=== PATIENT | female | born 1965 | race Hispanic/Latino ===

== ENCOUNTER 2019-06-16 09:38 | Inpatient (IN) | payer MEDICAID ==
[2019-06-16] MEDS ORDERED: SODIUM CHLORIDE 0.9% 500 ML 500 ML IV ONE (09:42)
--- NOTE | 2019-06-16 09:43 | Emergency Department Report ---
ED Neuro Deficit HPI - General Chief Complaint: Neuro Symptoms/Deficit Stated Complaint: POSS CVA Time Seen by Provider: 06/16/19 09:40 Source: patient, EMS ( EMS documentation not available at time of chart dictation . Verbal report received from emergency medical services), RN notes reviewed Mode of arrival: Stretcher Limitations: Physical Limitation - History of Present Illness Initial Comments: Patient is a 53-year-old female, not known to this provider previously, brought to the hospital by emergency medical services as a possible code stroke. Last known well time is estimated to be 3 am today. Patient reportedly had a mechanical fall, and landed on her knees. She did not hit her head or neck. Her neurologic deficits include slurred speech, facial droop, loss of vision in the right eye, right arm weakness, right leg weakness. Accu-Chek acceptable in the field as per emergency medical services. Patient initially denied midline neck pain, chest pain, abdominal pain, shortness of breath, and lower extremity pain. Her symptoms are constant, they're painless, they do not radiate anywhere, they do not have exacerbating or relieving factors -: This morning, unknown Location: speech, right face, dysarthria, right arm, right leg Presenting Symptoms: Present: Weak/Paralyzed One Side, Blurred/Loss of Vision, Facial Droop/Numbness, Unable to Speak Clearly History of same: No Place: home Severity: severe Improves With: none Worsens With: none On Anticoagulants: No Context: other - Related Data Allergies/Adverse Reactions: Allergies Allergy/AdvReac Type Severity Reaction Status Date / Time No Known Allergies Allergy Verified 06/16/19 10:42 ED Review of Systems ROS: Stated complaint: POSS CVA Other details as noted in HPI Constitutional: denies: fever Eyes: vision change ENT: denies: dental pain Respiratory: denies: wheezing Cardiovascular: denies: syncope Gastrointestinal: denies: abdominal pain Musculoskeletal: myalgia (while in her emergency department stay, the patient developed cramping in her right posterior calf.) Neurological: weakness Psychiatric: anxiety Hematological/Lymphatic: denies: easy bleeding ED Neuro Physical Exam - General Limitations: Physical Limitation General appearance: alert, anxious Suspected Stroke: Yes - Head Head exam: Present: atraumatic, normocephalic - Eye Eye exam: Present: normal appearance, other (left-sided visual milligan are intact to finger counting and color perception. Right-sided visual milligan are not present at this time.). Absent: nystagmus - ENT ENT exam: Present: normal orophraynx, mucous membranes moist, normal external ear exam, other (there is a right-sided facial droop) - Neck Neck exam: Present: normal inspection, full ROM. Absent: tenderness, meningismus - Respiratory Respiratory exam: Present: normal lung sounds bilaterally. Absent: respiratory distress - Cardiovascular Cardiovascular Exam: Present: regular rate, normal rhythm, normal heart sounds. Absent: bradycardia, tachycardia, irregular rhythm, systolic murmur, diastolic murmur, rubs, gallop - GI/Abdominal GI/Abdominal exam: Present: soft. Absent: distended, tenderness, guarding, rebound, rigid, pulsatile mass - Extremities Exam Extremities exam: Present: normal inspection, other (2+ pulses noted in the bilateral upper and lower extremities. There is no palpable cord. negative Homans sign. Muscular compartments are soft. The pelvis is stable.). Absent: tenderness, calf tenderness - Back Exam Back exam: Present: normal inspection. Absent: tenderness, CVA tenderness (R), CVA tenderness (L), paraspinal tenderness, vertebral tenderness - Neurological Exam Neurological exam: Present: alert, oriented X3, motor sensory deficit (there is 5 out of 5 strength left arm and left leg. Sensation is intact to light touch left arm and left leg. 0 out of 5 strength right arm and right leg. Decreased sensation to light touch right arm and right leg.). Absent: CN II-XII intact (patient is dysarthric. There is a right-sided hemianopia. There is a right- sided facial droop. The tongue is midline.) - NIHSS Assessment Interval: Baseline 1a. Level of Consciousness: alert/keenly responsive 1b. LOC Questions: answers both correctly 1c. LOC Commands: performs tasks correctly 2. Best Gaze: normal 3. Visual: complete hemianopia 4. Facial Palsy: partial paralysis 5b. Motor Arm Right: no movement 5a. Motor Arm Left: no drift 6a. Motor Leg Left: no drift 6b. Motor Leg Right: no movement 7. Limb Ataxia: absent 8. Sensory: severe/total sensory loss 9. Best Language: no aphasia 10. Dysarthria: severe dysarthria 11. Extinction/Inattention: visual/tactile inattention Total Score: 17 Stroke Severity: Moderate to Severe Stroke - Psychiatric Psychiatric exam: Present: anxious - Skin Skin exam: Present: warm, dry, intact, normal color. Absent: rash ED Course Vital Signs 06/16/19 06/16/19 06/16/19 09:54 10:00 10:30 Temperature Pulse Rate 96 H Respiratory 16 Rate Blood Pressure 201/107 203/108 O2 Sat by Pulse 98 97 97 Oximetry 06/16/19 06/16/19 06/16/19 10:45 10:53 11:06 Temperature 97.8 F Pulse Rate 88 Respiratory 15 13 Rate Blood Pressure 163/90 O2 Sat by Pulse 97 96 Oximetry - Reevaluation(s) Reevaluation #1: 06/16/19 11:29 Differential diagnosis, including but not limited to: Subacute stroke, charley horse, muscle cramps, hypertensive urgency, hyperglycemia Assessment and plan: 53-year-old female with history and physical suggestive of subacute stroke. The patient is not a TPA candidate as she presents more than 4.5 hours after symptom onset. She initially has no chest pain, neck pain, back pain, abdominal pain or extremity pain. She has equal pulses in the upper and lower extremities. An emergent CT angiogram was obtained, and shows a left-sided NAPOLEON stenosis and/ or possible thrombosis. We have reached out to interventional stroke neurology at [place], and discussed the case with Dr. Hubbard who is currently reviewing the patient's images. At this point in time, do not anticipate need for endovascular intervention. At one point in time, the patient developed a blood pressure in the 230s, secondary to pain, cramping in agitation, and was given labetalol. Blood pressure now currently in the 160s. Hyperglycemia reviewed and appreciated, IV fluids and insulin ordered. Hypomagnesemia is appreciated. Elevated troponin most likely type II troponin leak, likely secondary to presumed subacute ischemic event. We do not suspect aortic dissection at this time, given CT angiogram findings, presence of equal pulses in the upper and lower extremities at this time, lack of pulsatile abdominal mass. Case is presented to the Hospital physician, Dr. Velazquez, who accepts the patient to the medical service. Patient amenable to hospitalization at this time. Patient also seen in conjunction with our stroke neurologist, Dr. Ermias Pink, who also recommended TPA not appropriate, and also recommended emergent acquisition of CT angiogram head and neck. Reevaluation #2: 06/16/19 11:57 received call back from Dr Hubbard he advises no no endovascular intervention indicated recommends permissive hypertension, dual anti platelet therapy including plavix load 300 mg and mri will defer to inpatient team - Lab Data Result diagrams: 06/16/19 09:56 06/16/19 09:56 Lab Results 06/16/19 06/16/19 06/16/19 Range/Units 09:56 09:56 09:56 WBC 13.5 H (4.5-11.0) K/mm3 RBC 5.91 H (3.65-5.03) M/mm3 Hgb 17.5 H (10.1-14.3) gm/dl Hct 51.2 H (30.3-42.9) % MCV 87 (79-97) fl MCH 30 (28-32) pg MCHC 34 (30-34) % RDW 13.8 (13.2-15.2) % Plt Count 300 (140-440) K/mm3 Lymph % (Auto) 17.6 (13.4-35.0) % [place] % (Auto) 5.6 (0.0-7.3) % Eos % (Auto) 0.0 (0.0-4.3) % Baso % (Auto) 0.5 (0.0-1.8) % Lymph # 2.4 (1.2-5.4) K/mm3 [place] # 0.8 (0.0-0.8) K/mm3 Eos # 0.0 (0.0-0.4) K/mm3 Baso # 0.1 (0.0-0.1) K/mm3 Seg Neutrophils % 76.3 H (40.0-70.0) % Seg Neutrophils # 10.3 H (1.8-7.7) K/mm3 PT 12.9 (12.2-14.9) Sec. INR 0.96 (0.87-1.13) APTT 26.0 (24.2-36.6) Sec. Thrombin Time 18.4 (15.1-19.6) Sec. Sodium (137-145) mmol/L Potassium (3.6-5.0) mmol/L Chloride (98-107) mmol/L Carbon Dioxide (22-30) mmol/L Anion Gap mmol/L BUN (7-17) mg/dL Creatinine (0.7-1.2) mg/dL Estimated GFR ml/min BUN/Creatinine Ratio % Glucose (65-100) mg/dL Calcium (8.4-10.2) mg/dL Magnesium 1.60 L (1.7-2.3) mg/dL Total Bilirubin (0.1-1.2) mg/dL AST (5-40) units/L ALT (7-56) units/L Alkaline Phosphatase (35-129) units/L Total Creatine Kinase 33 (30-135) units/L CK-MB (CK-2) 1.8 (0.0-4.0) ng/mL CK-MB (CK-2) Rel Index 5.4 H (0-4) Troponin T 0.034 H (0.00-0.029) ng/mL Total Protein (6.3-8.2) g/dL Albumin (3.9-5) g/dL Albumin/Globulin Ratio % Triglycerides 302 H (2-149) mg/dL Cholesterol 281 H (50-199) mg/dL LDL Cholesterol Direct 207 H (50-130) mg/dL HDL Cholesterol 52 (40-59) mg/dL Cholesterol/HDL Ratio 5.40 % Salicylates (2.8-20.0) mg/dL Acetaminophen (10.0-30.0) ug/mL Plasma/Serum Alcohol (0-0.07) % 06/16/19 06/16/19 06/16/19 Range/Units 09:56 09:56 09:56 WBC (4.5-11.0) K/mm3 RBC (3.65-5.03) M/mm3 Hgb (10.1-14.3) gm/dl Hct (30.3-42.9) % MCV (79-97) fl MCH (28-32) pg MCHC (30-34) % RDW (13.2-15.2) % Plt Count (140-440) K/mm3 Lymph % (Auto) (13.4-35.0) % [place] % (Auto) (0.0-7.3) % Eos % (Auto) (0.0-4.3) % Baso % (Auto) (0.0-1.8) % Lymph # (1.2-5.4) K/mm3 [place] # (0.0-0.8) K/mm3 Eos # (0.0-0.4) K/mm3 Baso # (0.0-0.1) K/mm3 Seg Neutrophils % (40.0-70.0) % Seg Neutrophils # (1.8-7.7) K/mm3 PT (12.2-14.9) Sec. INR (0.87-1.13) APTT (24.2-36.6) Sec. Thrombin Time (15.1-19.6) Sec. Sodium (137-145) mmol/L Potassium (3.6-5.0) mmol/L Chloride (98-107) mmol/L Carbon Dioxide (22-30) mmol/L Anion Gap mmol/L BUN (7-17) mg/dL Creatinine (0.7-1.2) mg/dL Estimated GFR ml/min BUN/Creatinine Ratio % Glucose (65-100) mg/dL Calcium (8.4-10.2) mg/dL Magnesium (1.7-2.3) mg/dL Total Bilirubin (0.1-1.2) mg/dL AST (5-40) units/L ALT (7-56) units/L Alkaline Phosphatase (35-129) units/L Total Creatine Kinase (30-135) units/L CK-MB (CK-2) (0.0-4.0) ng/mL CK-MB (CK-2) Rel Index (0-4) Troponin T (0.00-0.029) ng/mL Total Protein (6.3-8.2) g/dL Albumin (3.9-5) g/dL Albumin/Globulin Ratio % Triglycerides (2-149) mg/dL Cholesterol (50-199) mg/dL LDL Cholesterol Direct (50-130) mg/dL HDL Cholesterol (40-59) mg/dL Cholesterol/HDL Ratio % Salicylates 2.0 L (2.8-20.0) mg/dL Acetaminophen < 5.0 L (10.0-30.0) ug/mL Plasma/Serum Alcohol < 0.01 (0-0.07) % 1213/ Range/Units 09:56 WBC (4.5-11.0) K/mm3 RBC (3.65-5.03) M/mm3 Hgb (10.1-14.3) gm/dl Hct (30.3-42.9) % MCV (79-97) fl MCH (28-32) pg MCHC (30-34) % RDW (13.2-15.2) % Plt Count (140-440) K/mm3 Lymph % (Auto) (13.4-35.0) % [place] % (Auto) (0.0-7.3) % Eos % (Auto) (0.0-4.3) % Baso % (Auto) (0.0-1.8) % Lymph # (1.2-5.4) K/mm3 [place] # (0.0-0.8) K/mm3 Eos # (0.0-0.4) K/mm3 Baso # (0.0-0.1) K/mm3 Seg Neutrophils % (40.0-70.0) % Seg Neutrophils # (1.8-7.7) K/mm3 PT (12.2-14.9) Sec. INR (0.87-1.13) APTT (24.2-36.6) Sec. Thrombin Time (15.1-19.6) Sec. Sodium 135 L (137-145) mmol/L Potassium 4.2 (3.6-5.0) mmol/L Chloride 95.3 L (98-107) mmol/L Carbon Dioxide 20 L (22-30) mmol/L Anion Gap 24 mmol/L BUN 12 (7-17) mg/dL Creatinine 0.5 L (0.7-1.2) mg/dL Estimated GFR > 60 ml/min BUN/Creatinine Ratio 24 % Glucose 342 H (65-100) mg/dL Calcium 10.1 (8.4-10.2) mg/dL Magnesium (1.7-2.3) mg/dL Total Bilirubin 0.50 (0.1-1.2) mg/dL AST 13 (5-40) units/L ALT 10 (7-56) units/L Alkaline Phosphatase 87 (35-129) units/L Total Creatine Kinase (30-135) units/L CK-MB (CK-2) (0.0-4.0) ng/mL CK-MB (CK-2) Rel Index (0-4) Troponin T (0.00-0.029) ng/mL Total Protein 7.3 (6.3-8.2) g/dL Albumin 4.2 (3.9-5) g/dL Albumin/Globulin Ratio 1.4 % Triglycerides (2-149) mg/dL Cholesterol (50-199) mg/dL LDL Cholesterol Direct (50-130) mg/dL HDL Cholesterol (40-59) mg/dL Cholesterol/HDL Ratio % Salicylates (2.8-20.0) mg/dL Acetaminophen (10.0-30.0) ug/mL Plasma/Serum Alcohol (0-0.07) % - EKG Data -: EKG Interpreted by [facility] EKG shows normal: sinus rhythm Rate: normal When compared to previous EKG there are: previous EKG unavailable 06/16/19 11:32 There is no prior EKG available for comparison. The EKG shows a sinus rhythm, there is a prolonged FL interval, there is poor R wave progression, there is a left axis deviation, there is a left anterior fascicular block, there is poor R wave progression, the EKG is abnormal, the EKG is not consistent with ST elevation myocardial infarction. - Radiology Data Radiology results: report reviewed, image reviewed Print Report Referring Physician: CATINA TONG Patient Name: DENZEL WADE Date of : 1965 Sex: Female Report Date: 2019-06-16 Report Status: [place] [address] Cat Scan Report Signed Patient: DENZEL WADE MR#: [id number] : 1965 Acct:[id number] Age/Sex: 53 / F ADM Date: 06/16/19 Loc: ED Attending Dr: Ordering Physician: CATINA TONG MD Date of Service: 06/16/19 Procedure(s): CT head/brain wo con Accession Number(s): [id number] cc: CATINA TONG MD CT HEAD WITHOUT CONTRAST INDICATION / CLINICAL INFORMATION: Stroke symptoms. Right- sided weakness TECHNIQUE: All CT scans at this location are performed using CT dose reduction for ALARA by means of automated exposure control. COMPARISON: None available. FINDINGS: HEMORRHAGE: No evidence of intracranial hemorrhage or extra-axial fluid collection. EXTRA-AXIAL SPACES: Cortical sulci, sylvian fiss ures and basilar cisterns have an unremarkable appearance. VENTRICULAR SYSTEM: The ventricular system is of normal size and configuration. CEREBRAL PARENCHYMA: There is a low-attenuation lesion involving portions of the left thalamus, posterior limb internal capsule and globus pallidus measuring about 1.5 cm in diameter. This could represent a subacute infarction. Subtle low-attenuation is observed in the left temporal lobe. This is an indeterminate finding. Is evidence of remote small deep infarction involving head of caudate nucleus on the left and adjacent monsivais radiata. A small deep infarction is seen in the right monsivais radiata. Periventricular and deep white matter lucency is observed in both cerebral hemispheres likely a manifestation of microvascular ischemic change. Magnetic resonance imaging would be useful to more accurately date the age of the suspected left thalamic infarction and better characterize the decreased attenuation in the left temporal lobe. MIDLINE SHIFT OR HERNIATION: There is no mass effect. CEREBELLUM / BRAINSTEM: Brainstem and cerebellum have an unremarkable appearance. INTRACRANIAL VESSELS:No abnormalities are identified on this noncontrast head CT. ORBITS: The orbits have an unremarkable appearance. SOFT TISSUES of HEAD: No significant abnormality. CALVARIUM: Evaluation of bone windows reveals no abnormalities. PARANASAL SINUSES / MASTOID AIR CELLS: Paranasal sinuses are free from inflammatory mucosal disease. Mastoid air cells are normally pneumatized. ADDITIONAL FINDINGS: None. IMPRESSION: 1. 1.5 cm diameter low-attenuation lesion involving left thalamus, posterior limb internal capsule and globus pallidus may represent a subacute infarction. Is also decreased attenuation in the left temporal lobe which could be secondary to subacute infarction. Correlation with magnetic resonance imaging would be useful to better define and characterize this finding. 2. Remote small deep infarctions bilaterally as described above. 3. Extensive microvascular ischemic changes greater than expected for age 53 years. Code stroke: I called a report of this study to Dr. Tong of the [facility] emergency department at about 0912 hours on 06/16/2019 (Central standard time). Signer Name: Hitesh Hyman MD Signed: 06/16/2019 10:21 AM Workstation Name: [id number] Transcribed By: Dictated By: Hitesh Hyman MD Electronically Authenticated By: Hitesh Hyman MD Signed Date/Time: 06/16/19 1021 DD/ 1009 Print Report Referring Physician: CATINA TONG Patient Name: DENZEL WADE Date of : 1965 Sex: Female Report Date: 2019-06-16 Report Status: Finalized Findings [facility] [address] [place] [address] Cat Scan Report Signed Patient: DENZEL WADE MR#: [id number] : 1965 Acct:[id number] Age/Sex: 53 / F ADM Date: 06/16/19 Loc: ED Attending Dr: Ordering Physician: CATINA TONG MD Date of Service: 06/16/19 Procedure(s): CT cervical spine wo con Accession Number(s): [id number] cc: CATINA TONG MD CT CERVICAL SPINE: 06/16/2019 INDICATION / CLINICAL INFORMATION: fall weak. COMPARISON: None available. FINDINGS: CT images of the cervical spine were obtained. Images are evaluated in the axial, coronal, and sagittal planes. There is no evidence of acute abnormality. Slight left convex scoliosis of the spine at the cervicothoracic junction is present. Degenerative disc space narrowing and osteophyte medicine is present at all levels. LEVEL BY LEVEL ANALYSIS: C7- T1: Disc space narrowing and mild disc bulging. C6-7: Disc space narrowing and moderate diffuse disc bulging, more pronounced on the right. Right-sided foraminal narrowing is present. C5-6: Prominent diffuse disc bulging, slightly more pronounced on the right. Moderately severe central canal narrowing and right-sided foraminal narrowing. C3-4: Prominent symmetric diffuse disc bulging associated with severe central canal stenosis and bilateral foraminal narrowing. C3-4: Diffuse disc bulging with superimposed central disc herniation, resulting in severe central canal stenosis. Protruding central disc herniation is slightly hyperdense relative to expected disc material. This may be evidence of some underlying calcification, although a small amount of blood products cannot be excluded. Depending on details of the clinical circumstances, further evaluation with MRI might be warranted. C2-3: Mild diffuse disc bulging. CRANIOCERVICAL JUNCTION: Unremarkable. PARASPINAL STRUCTURES: Unremarkable IMPRESSION: No evidence of acute osseous injury. Extensive degenerative changes. Dominant francisco javier tral disc herniation at C3-4 with subtle hyperdensity in the presumed herniated disc material as detailed above. All CT scans at this location are performed using dose reduction to ALARA by means of automated exposure control. Signer Name: Jc Mancia MD Signed: 06/16/2019 11:15 AM Workstation Name: [id number] Transcribed By: AO Dictated By: Jc Mancia MD Electronically Authenticated By: Jc Mancia MD Signed Date/Time: 06/16/19 1115 DD/ 1110 Print Report Referring Physician: CATINA TONG Patient Name: DENZEL WADE Date of : 1965 Sex: Female Report Date: 2019-06-16 Report Status: [place] [address] Cat Scan Report Signed Patient: DENZEL WADE MR#: [id number] : 1965 Acct:[id number] Age/Sex: 53 / F ADM Date: 06/16/19 Loc: ED Attending Dr: Ordering Physician: CATINA TONG MD Date of Service: 06/16/19 Procedure(s): CT angio head Accession Number(s): [id number] cc: CATINA TONG MD CTA HEAD AND NECK WITH CONTRAST HISTORY: Stroke, right-sided weakness COMPARISON: CT head without contrast performed the same day TECHNIQUE: Routine non-contrast CT Head, post-contrast CTA of the head, post-contrast CTA of the neck and post-contrast CT Head are performed. 3-D/MIP reformats postprocessed. Percentage stenosis is determined by direct quantitative measurements of diseased internal carotid artery diameter compared with normal distal internal carotid artery reference segments or by criteria similar to NASCET where applicable. CONTRAST: 100 ml of Omnipaque 350 FINDINGS: CTA HEAD: Intracranial vertebral arteries: The right vertebral artery is widely patent. Focal narrowing in the distal left vertebral artery is estimated at at least 50%. Basilar artery: No significant abnormality. Posterior cerebral arteries: There is mild to moderate atherosclerotic disease in the proximal left FOOD COUNTER WORKER with stenosis estimated at 50%. The remainder of the weight analyst appear patent. Intracranial internal carotid arteries: No significant abnormality. Anterior cerebral arteries: Focal high-grade stenosis or partial oc clusion is suspected in the mid left anterior cerebral artery which is best demonstrated on axial images 453-458 and sagittal MIPS image 30. There is flow distal to this stenosis in the distal left NAPOLEON. The right N[place]OLE[place] is widely patent. Middle cerebral arteries: The left MCA is widely patent. The right MCA is patent although 50% narrowing in the right M1 segment is noted from noncalcified plaque. Dural venous sinuses:Not optimally opacified. No significant abnormality. CTA NECK: Aortic arch: No significant abnormality. Cervical vertebral arteries: No significant abnormality. Common carotid arteries: No significant abnormality. Cervical internal carotid arteries: No significant abnormality. Additional findings: None. IMPRESSION: Focal high-grade stenosis or partial thrombosis is suspected in the mid left anterior cerebral artery as outlined above. Mild to moderate atherosclerotic disease in the distal left vertebral artery, proximal left posterior cerebral artery and proximal right middle cerebral artery. See above. These findings were discussed with Dr. Doll in the emergency department at 1105 hours EST. Signer Name: Thuan John Jr, MD Signed: 06/16/2019 11:15 AM Workstation Name: [id number] Transcribed By: TTR Dictated By: THUAN JOHN JR, MD Electronically Authenticated By: THUAN JOHN JR, MD Signed Date/Time: 06/16/19 1115 DD/ 1053 Print Report Referring Physician: CATINA TONG Patient Name: DENZEL WADE Date of : 1965 Sex: Female Report Date: 2019-06-16 Report Status: Finalized Findings [address] [address] Cat Scan Report Signed Patient: DENZEL WADE MR#: [id number] : 1965 Acct:[id number] Age/Sex: 53 / F ADM Date: 06/16/19 Loc: ED Attending Dr: Ordering Physician: CATINA TONG MD Date of Service: 06/16/19 Procedure(s): CT angio neck Accession Number(s): [id number] cc: CATINA TONG MD CTA HEAD AND NECK WITH CONTRAST HISTORY: Stroke, right-sided weakness COMPARISON: CT head without contrast performed the same day TECHNIQUE: Routine non-contrast CT Head, post-contrast CTA of the head, post-contrast CTA of the neck and post-contrast CT Head are performed. 3-D/MIP reformats postprocessed. Percentage stenosis is determined by direct quantitative measurements of diseased internal carotid artery diameter compared with normal distal internal carotid artery reference segments or by criteria similar to NASCET where applicable. CONTRAST: 100 ml of Omnipaque 350 FINDINGS: CTA HEAD: Intracranial vertebral arteries: The right vertebral artery is widely patent. Focal narrowing in the distal left vertebral artery is estimated at at least 50%. Basilar artery: No significant abnormality. Posterior cerebral arteries: There is mild to moderate atherosclerotic disease in the proximal left FO[employer]ER with stenosis estimated at 50%. The remainder of the weight analyst appear patent. Intracranial internal carotid arteries: No significant abnormality. Anterior cerebral arteries: Focal high-grade stenosis or partial occlusion is suspected in the mid left anterior cerebral artery which is best demonstrated on axial images 453-458 and sagittal MIPS image 30. There is flow distal to this stenosis in the distal left NAPOLEON. The right N[place]OLEON is widely patent. Middle cerebral arteries: The left MCA is widely patent. The right MCA is patent although 50% narrowing in the right M1 segment is noted from noncalcified plaque. Dural venous sinuses:Not optimally opacified. No significant abnormality. CTA NECK: Aortic arch: No significant abnormality. Cervical vertebral arteries: No significant abnormality. Common carotid arteries: No significant abnormality. Cervical internal carotid arteries: No significant abnormality. Additional findings: None. IMPRESSION: Focal high-grade stenosis or partial thrombosis is suspected in the mid left anterior cerebral artery as outlined above. Mild to moderate atherosclerotic disease in the distal left vertebral artery, proximal left posterior cerebral artery and proximal right middle cerebral artery. See above. These findings were discussed with Dr. Doll in the emergency department at 1105 hours EST. Signer Name: Thuan John Jr, MD Signed: 06/16/2019 11:15 AM Workstation Name: [id number] Transcribed By: TTR Dictated By: THUAN JOHN JR, MD Electronically Authenticated By: THUAN JOHN JR, MD Signed Date/Time: 06/16/19 1115 DD/ 1053 - Core Measures Measure Exclusions: not indicated - Thrombolytic Inclusion/Exclusion Thrombolytic Exclusion Criteria: Symptom Onset > 3 Hours Critical Care Time: Yes Critical care time in (mins) excluding proc time.: 60 Critical care attestation.: If time is entered above; I have spent that time in minutes in the direct care of this critically ill patient, excluding procedure time. ED Disposition Clinical Impression: Stroke, Hyperglycemia, Hypomagnesemia Disposition: OP ADMIT IP TO THIS HOSP Is pt being admited?: Yes Condition: Serious
[2019-06-16 10:11] LABS: Basophils # (Auto) 0.1 K/mm3 (0.0-0.1); Basophils % (Auto) 0.5 % (0.0-1.8); Hematocrit 51.2 % (30.3-42.9); Hemoglobin 17.5 gm/dl (10.1-14.3); Lymphocytes # (Auto) 2.4 K/mm3 (1.2-5.4); Lymphocytes % (Auto) 17.6 % (13.4-35.0); Mean Corpuscular HGB Conc 34 % (30-34); Mean Corpuscular Volume 87 fl (79-97); Monocytes # (Auto) 0.8 K/mm3 (0.0-0.8); Monocytes % (Auto) 5.6 % (0.0-7.3); Platelet Count 300 K/mm3 (140-440); Red Blood Count 5.91 M/mm3 (3.65-5.03); Red Cell Distribution Width 13.8 % (13.2-15.2)
[2019-06-16 10:18] LABS: INR 0.96 (0.87-1.13)
[2019-06-16 10:21] LABS: Thrombin Time 18.4 Sec. (15.1-19.6)
--- NOTE | 2019-06-16 10:25 | Cat Scan Report ---
CT HEAD WITHOUT CONTRAST INDICATION / CLINICAL INFORMATION: Stroke symptoms. Right-sided weakness TECHNIQUE: All CT scans at this location are performed using CT dose reduction for ALARA by means of automated e xposure control. COMPARISON: None available. FINDINGS: HEMORRHAGE: No evidence of intracranial hemorrhage or extra-axial fluid collection. EXTRA-AXIAL SPACES: Cortical sulci, sylvian fissures and basilar cisterns have an unremarkable appear ance. VENTRICULAR SYSTEM: The ventricular system is of normal size and configuration. CEREBRAL PARENCHYMA: There is a low-attenuation lesion involving portions of the left thalamus, poste rior limb internal capsule and globus pallidus measuring about 1.5 cm in diameter. This could represe nt a subacute infarction. Subtle low-attenuation is observed in the left temporal lobe. This is an in determinate finding. Is evidence of remote small deep infarction involving head of caudate nucleus on the left and adjacent monsivais radiata. A small deep infarction is seen in the right monsivais radiata. P eriventricular and deep white matter lucency is observed in both cerebral hemispheres likely a manife station of microvascular ischemic change. Magnetic resonance imaging would be useful to more accurate ly date the age of the suspected left thalamic infarction and better characterize the decreased atten uation in the left temporal lobe. MIDLINE SHIFT OR HERNIATION: There is no mass effect. CEREBELLUM / BRAINSTEM: Brainstem and cerebellum have an unremarkable appearance. INTRACRANIAL VESSELS:No abnormalities are identified on this noncontrast head CT. ORBITS: The orbits have an unremarkable appearance. SOFT TISSUES of HEAD: No significant abnormality. CALVARIUM: Evaluation of bone windows reveals no abnormalities. PARANASAL SINUSES / MASTOID AIR CELLS: Paranasal sinuses are free from inflammatory mucosal disease. Mastoid air cells are normally pneumatized. ADDITIONAL FINDINGS: None. IMPRESSION: 1. 1.5 cm diameter low-attenuation lesion involving left thalamus, posterior limb internal capsule an d globus pallidus may represent a subacute infarction. Is also decreased attenuation in the left temp oral lobe which could be secondary to subacute infarction. Correlation with magnetic resonance imagin g would be useful to better define and characterize this finding. 2. Remote small deep infarctions bilaterally as described above. 3. Extensive microvascular ischemic changes greater than expected for age 55 years. Code stroke: I called a report of this study to Dr. Tong of the [facility] emergency department at about 0912 hours on 06/16/2019 (Central standard time). Signer Name: Hitesh Hyman MD Signed: 06/16/2019 10:21 AM Workstation Name: [id number]
[2019-06-16 10:26] LABS: Creatine Kinase MB 1.8 ng/mL (0.0-4.0)
[2019-06-16 10:27] LABS: Alanine Aminotransferase 10 units/L (7-56); Blood Urea Nitrogen 12 mg/dL (7-17); Calcium 10.1 mg/dL (8.4-10.2); Hemolysis Index 17
[2019-06-16] MEDS ORDERED: INSULIN REGULAR, HUMAN 100 UNITS/1 ML IV ONE (10:35)
[2019-06-16] MEDS ORDERED: MAGNESIUM SULFATE 2 GM/50 ML BAG IV ONE (10:35)
[2019-06-16] MEDS ORDERED: MORPHINE 4 MG/1 ML INJ IV ONE (10:35)
[2019-06-16] MEDS ORDERED: MORPHINE 4 MG/1 ML INJ ONE (10:38)
[2019-06-16 10:39] LABS: Chol/HDL Ratio 5.4 %
[2019-06-16 10:52] LABS: Albumin 4.2 g/dL (3.9-5); BUN/Creatinine Ratio 24
--- NOTE | 2019-06-16 11:19 | Cat Scan Report ---
CTA HEAD AND NECK WITH CONTRAST HISTORY: Stroke, right-sided weakness COMPARISON: CT head without contrast performed the same day TECHNIQUE: Routine non-contrast CT Head, post-contrast CTA of the head, post-contrast CTA of the neck and post-contrast CT Head are performed. 3-D/MIP reformats postprocessed. Percentage stenosis is de termined by direct quantitative measurements of diseased internal carotid artery diameter compared wi th normal distal internal carotid artery reference segments or by criteria similar to NASCET where ap plicable. CONTRAST: 100 ml of Omnipaque 350 FINDINGS: CTA HEAD: Intracranial vertebral arteries: The right vertebral artery is widely patent. Focal narrowing in the distal left vertebral artery is estimated at at least 50%. Basilar artery: No significant abnormality. Posterior cerebral arteries: There is mild to moderate atherosclerotic disease in the proximal left P CA with stenosis estimated at 50%. The remainder of the second hand paper machine appear patent. Intracranial internal carotid arteries: No significant abnormality. Anterior cerebral arteries: Focal high-grade stenosis or partial occlusion is suspected in the mid le ft anterior cerebral artery which is best demonstrated on axial images [id number] and sagittal MIPS imag e 30. There is flow distal to this stenosis in the distal left NAPOLEON. The right NAPOLEON is widely patent. Middle cerebral arteries: The left MCA is widely patent. The right MCA is patent although 50% narrow ing in the right M1 segment is noted from noncalcified plaque. Dural venous sinuses:Not optimally opacified. No significant abnormality. CTA NECK: Aortic arch: No significant abnormality. Cervical vertebral arteries: No significant abnormality. Common carotid arteries: No significant abnormality. Cervical internal carotid arteries: No significant abnormality. Additional findings: None. IMPRESSION: Focal high-grade stenosis or partial thrombosis is suspected in the mid left anterior cerebral artery as outlined above. Mild to moderate atherosclerotic disease in the distal left vertebral artery, proximal left posterior cerebral artery and proximal right middle cerebral artery. See above. These findings were discussed with Dr. Doll in the emergency department at 1105 hours EST. Signer Name: Thuan John Jr, MD Signed: 06/16/2019 11:15 AM Workstation Name: [id number]
--- NOTE | 2019-06-16 11:20 | Cat Scan Report ---
CT CERVICAL SPINE: 06/16/2019 INDICATION / CLINICAL INFORMATION: fall weak. COMPARISON: None available. FINDINGS: CT images of the cervical spine were obtained. Images are evaluated in the axial, coronal, and sagitt al planes. There is no evidence of acute abnormality. Slight left convex scoliosis of the spine at the cervicothoracic junction is present. Degenerative disc space narrowing and osteophyte medicine is present at all levels. LEVEL BY LEVEL ANALYSIS: C7-T1: Disc space narrowing and mild disc bulging. C6-7: Disc space narrowing and moderate diffuse disc bulging, more pronounced on the right. Right-janeen ed foraminal narrowing is present. C5-6: Prominent diffuse disc bulging, slightly more pronounced on the right. Moderately severe centra l canal narrowing and right-sided foraminal narrowing. C3-4: Prominent symmetric diffuse disc bulging associated with severe central canal stenosis and bila teral foraminal narrowing. C3-4: Diffuse disc bulging with superimposed central disc herniation, resulting in severe central can al stenosis. Protruding central disc herniation is slightly hyperdense relative to expected disc mate rial. This may be evidence of some underlying calcification, although a small amount of blood product s cannot be excluded. Depending on details of the clinical circumstances, further evaluation with MRI might be warranted. C2-3: Mild diffuse disc bulging. CRANIOCERVICAL JUNCTION: Unremarkable. PARASPINAL STRUCTURES: Unremarkable IMPRESSION: No evidence of acute osseous injury. Extensive degenerative changes. Dominant central disc herniation at C3-4 with subtle hyperdensity in the presumed herniated disc mate rial as detailed above. All CT scans at this location are performed using dose reduction to ALARA by means of automated expos ure control. Signer Name: Jc Mancia MD Signed: 06/16/2019 11:15 AM Workstation Name: [id number]
[2019-06-16] MEDS ORDERED: ASPIRIN 325 MG TAB PO ONE (11:21)
[2019-06-16] MEDS ORDERED: METOCLOPRAMIDE 10 MG TAB PO PRN (11:49)
[2019-06-16] MEDS ORDERED: ALBUTEROL 2.5 MG/3 ML NEBU IH PRN (11:49)
[2019-06-16] MEDS ORDERED: ONDANSETRON 4 MG/2 ML INJ IV PRN (11:49)
[2019-06-16] MEDS ORDERED: MAGNESIUM HYDROXIDE (MOM) ORAL LIQD UDC PO PRN (11:49)
[2019-06-16] MEDS ORDERED: PROMETHAZINE 25 MG RECT SUPP PR PRN (11:49)
--- NOTE | 2019-06-16 11:49 | History and Physical Report ---
History of Present Illness Date of admission: 06/16/19 11:35 Chief complaint: I cant talk History of present illness: 53 YO Female with NO PMH presents to ED for evaluation. Pt has dysarthria and has difficulty answering questions. Pt reports being in her usual state of health around 0300hrs. Pt reports awakening from sleep around 0800hrs and experienced slurred speech, right side facial droop, right arm and leg weakness, as well as loss of vision in the right eye. Pt reports attempting to stand, but was unable to maintain a standing position and fell to the floor. EMS notified, and upon arrival the patient was found to have a neurologic deficit. A code stroke was called, and the patient was transported to [facility]. Pt seen and evaluated in ED and found to have symptoms consistent with CVA with RHP and Right sided neglect. CT head revealed Left Thalamic/Internal Capsule CVA. Teleneurology consulted. Pt deemed not a candidate for TPA. Pt also found to have Hypertensive Urgency with SBP of 203. Pt admitted to medical floor and admitted on CVA protocol. Pt denies with head nod the following symptoms: fever, chills, CP, Palpitations, shortness of breath, trauma, BRBPR, Unintentional weight loss, night sweats, skin rash, recent ill contacts, abdominal pain, leg swelling, or calf pain. Past History Past Medical History: No medical history, other (reviewed) Past Surgical History: No surgical history, Other (reviewed) Social history: , lives with family. denies: smoking, alcohol abuse, prescription drug abuse Family history: hypertension Medications and Allergies Allergies Allergy/AdvReac Type Severity Reaction Status Date / Time No Known Allergies Allergy Verified 06/16/19 10:42 Review of Systems Constitutional: no weight loss, no weight gain, no fever, no chills Ears, nose, mouth and throat: no ear pain, no ear discharge, no tinnitis, no decreased hearing, no nose pain, no nasal congestion, no nasal discharge Breasts: no change in shape, no swelling, no mass Cardiovascular: no chest pain, no orthopnea, no palpitations, no syncope Respiratory: no cough, no cough with sputum, no hemoptysis, no shortness of breath, no dyspnea on exertion Gastrointestinal: no abdominal pain, no nausea, no vomiting, no diarrhea, no constipation Genitourinary Female: no pelvic pain, no flank pain, no menorrhagia, no dysuria Rectal: no pain, no incontinence, no bleeding Musculoskeletal: no neck stiffness, no neck pain, no shooting arm pain, no low back pain, no shooting leg pain, no leg numbness/tingling Integumentary: no rash, no pruritis, no sores, no wounds, no jaundice Neurological: paralysis, weakness, lack of coordination, change in speech, gait dysfunction, motor disturbance, loss of vision, no transient paralysis, no parathesias, no numbness, no tingling Psychiatric: no anxiety, no memory loss, no change in sleep habits, no sleep disturbances, no insomnia, no hypersomnia, no change in appetite Endocrine: no cold intolerance, no excessive thirst, no polydipsia, no nocturia Hematologic/Lymphatic: no easy bruising, no easy bleeding, no lymphadenopathy Allergic/Immunologic: no urticaria, no allergic rhinitis, no anaphylaxis Exam - Constitutional Vitals: Temp Pulse Resp BP Pulse Ox 97.8 F 88 13 163/90 96 06/16/19 10:53 06/16/19 10:45 06/16/19 11:06 06/16/19 10:45 06/16/19 11:06 General appearance: Present: mild distress - EENT Eyes: Present: PERRL ENT: hearing intact, clear oral mucosa - Neck Neck: Present: supple, normal ROM - Respiratory Respiratory effort: normal Respiratory: bilateral: CTA - Cardiovascular Heart Sounds: Present: S1 & S2. Absent: rub, click - Extremities Extremities: pulses symmetrical, No edema Peripheral Pulses: within normal limits - Abdominal General gastrointestinal: Present: soft, non-tender, non-distended, normal bowel sounds Female genitourinary: Present: normal - Integumentary Integumentary: Present: clear, warm, dry - Musculoskeletal Musculoskeletal: right sided weakness - Psychiatric Psychiatric: appropriate mood/affect, intact judgment & insight, agitated - Neurologic Neurologic: no CNII-XII intact, focal deficits, no moves all extremities, no gait normal Results - Labs CBC & Chem 7: 06/16/19 09:56 06/16/19 09:56 Labs: Abnormal lab results 06/16/19 06/16/19 06/16/19 Range/Units 09:56 09:56 09:56 WBC 13.5 H (4.5-11.0) K/mm3 RBC 5.91 H (3.65-5.03) M/mm3 Hgb 17.5 H (10.1-14.3) gm/dl Hct 51.2 H (30.3-42.9) % Seg Neutrophils % 76.3 H (40.0-70.0) % Seg Neutrophils # 10.3 H (1.8-7.7) K/mm3 Sodium (137-145) mmol/L Chloride (98-107) mmol/L Carbon Dioxide (22-30) mmol/L Creatinine (0.7-1.2) mg/dL Glucose (65-100) mg/dL Magnesium 1.60 L (1.7-2.3) mg/dL CK-MB (CK-2) Rel Index 5.4 H (0-4) Troponin T 0.034 H (0.00-0.029) ng/mL Triglycerides 302 H (2-149) mg/dL Cholesterol 281 H (50-199) mg/dL LDL Cholesterol Direct 207 H (50-130) mg/dL Salicylates 2.0 L (2.8-20.0) mg/dL Acetaminophen (10.0-30.0) ug/mL 06/16/19 06/16/19 Range/Units 09:56 09:56 WBC (4.5-11.0) K/mm3 RBC (3.65-5.03) M/mm3 Hgb (10.1-14.3) gm/dl Hct (30.3-42.9) % Seg Neutrophils % (40.0-70.0) % Seg Neutrophils # (1.8-7.7) K/mm3 Sodium 135 L (137-145) mmol/L Chloride 95.3 L (98-107) mmol/L Carbon Dioxide 20 L (22-30) mmol/L Creatinine 0.5 L (0.7-1.2) mg/dL Glucose 342 H (65-100) mg/dL Magnesium (1.7-2.3) mg/dL CK-MB (CK-2) Rel Index (0-4) Troponin T (0.00-0.029) ng/mL Triglycerides (2-149) mg/dL Cholesterol (50-199) mg/dL LDL Cholesterol Direct (50-130) mg/dL Salicylates (2.8-20.0) mg/dL Acetaminophen < 5.0 L (10.0-30.0) ug/mL Assessment and Plan - Patient Problems (1) CVA (cerebral vascular accident) Current Visit: Yes Status: Acute Qualifiers: Laterality of affected vessel: left Plan to address problem: CVA Protocol: CT HEAD, CTA Head neck, Teleneurology consulted, neuro check, statin therapy, lipid panel, Antiplatelet therapy, swallow evaluation, PT/OT/Speech Therapy, Echo, Carotid doppler, further testing as per Neurology team. Case management consulted regarding D/C Planning/Placement. (2) Right hemiparesis Current Visit: Yes Status: Acute Plan to address problem: PT/OT consulted, secondary to CVA (3) Hypertensive urgency, malignant Current Visit: Yes Status: Acute Plan to address problem: Monitor BP q shift, permissive HTN overnight, IV hydralazine prn for SBP>170 (4) DVT prophylaxis Current Visit: Yes Status: Acute Plan to address problem: SCD to BLE while in bed, prophylactic heparin
[2019-06-16] MEDS ORDERED: CLOPIDOGREL 300 MG TAB PO ONE (11:58)
--- NOTE | 2019-06-16 11:59 | Emergency Department Report ---
ED Neuro Deficit HPI - General Chief Complaint: Neuro Symptoms/Deficit Stated Complaint: POSS CVA Time Seen by Provider: 06/16/19 09:40 Source: patient, EMS ( EMS documentation not available at time of chart dictation . Verbal report received from emergency medical services), RN notes reviewed Mode of arrival: Stretcher Limitations: Physical Limitation - History of Present Illness Initial Comments: [facility] Tele[facility]rology Consult [facility] Date of Service: 06/16/2019 09:22:57 Impression: Left Hemispheric Infarct Comments: 53 yo with L brain stroke. Given the combination of dense hemiparesis, some apahsia, as well as neglect and/or VF deficit there is a strong suspicion for distal ACIDITY TESTER stroke involving temporal-occipital region or L post MCA stroke involving parieto-occipital territories. Review of CT without contrast raises a 3rd possibility of large L thalamic stroke that could explain all symptoms. This appears to be in early evolution. CTA did not show MCA or ACIDITY TESTER occlusion, raised concern about L [place] stenosis or partial thrombosis but this is not in the territory of expected symptoms (would suspect isolated or very prominent leg weakness) . I believe this is an incidental finding and patient is not a candidate for JEVON, and no tPA due to time. Admission for further work-up and better localization of symptoms/stroke. Mechanism of Stroke: Not Clear Metrics: Last Known Well: 06/15/2019 22:00:00 [facility] Notification Time: 06/16/2019 09:22:22 Arrival Time: 06/16/2019 09:38:00 Stamp Time: 06/16/2019 09:22:57 Time First Login Attempt: 06/16/2019 09:29:07 Video Start Time: 06/16/2019 09:29:07 Symptoms: R side weakness NIHSS Start Assessment Time: 06/16/2019 09:53:49 Patient is not a candidate for tPA. Patient was not deemed candidate for tPA thrombolytics because of Last Well Known Above 4.5 Hours. Video End Time: 06/16/2019 10:03:20 CT head was reviewed and results were: ? subtle early changes L thalamus Advanced imaging was reviewed. Advanced imaging CTA head and neck obtained. Radiologist was not called back for review of advanced imaging because Personally reviewed. There is distal L A1 atherosclerotic changes, but no obvious occlusion to my review and not in anatomical territory to explain symptoms. ER Physician notified of the decision on thrombolytics management on 06/16/2019 10:58:00 Our recommendations are outlined below. Recommendations: Activate Stroke Protocol Admission/Order Set Stroke/Telemetry Floor Neuro Checks Bedside Swallow Eval DVT Prophylaxis IV Fluids, Normal Saline Head of Bed Below 30 Degrees Euglycemia and Avoid Hyperthermia (PRN Acetaminophen) Initiate Aspirin Recommended Scan: MRI Head Without Contrast Echocardiogram - Transthoracic Echocardiogram Lipid Panel to Be Obtained, if Not Done in the Last Three Months Therapies: Physical Therapy, Occupational Therapy, Speech Therapy Assessment When Applicable Dysphaghia Screen: Swallow Evaluation, Bedside NPO Until Swallow Evaluation DVT prophylaxis: Choice of Primary Team Disposition: Sign Out Sign Out: Discussed with Emergency Department Provider History of Present Illness: Patient is a 53 year old Female. Patient was brought by EMS for symptoms of R side weakness 53 yo was in usual state of health last evening (? 2200), but at 0300 family heard fall. She was found on floor, and helped back into bed. Hours later, they checked on her, concerned about fall/weakness. EMS called. R side weakness noted and to ER for further evaluation. No history of stroke. CT head was reviewed. Examination: 1A: Level of Consciousness - Alert; keenly responsive + 0 1B: Ask Month and Age - Both Questions Right + 0 1C: Blink Eyes & Squeeze Hands - Performs Both Tasks + 0 2: Test Horizontal Extraocular Movements - Normal + 0 3: Test Visual Jarrett - Complete Hemianopia + 2 4: Test Facial Palsy (Use Grimace if Obtunded) - Partial paralysis +2 5A: Test Left Arm Motor Drift - No Drift for 10 Seconds + 0 5B: Test Right Arm Motor Drift - No Movement + 4 6A: Test Left Leg Motor Drift - No Drift for 5 Seconds + 0 6B: Test Right Leg Motor Drift - No Effort Against Dixon + 3 7: Test Limb Ataxia (FNF/Heel-Smith) - No Ataxia + 0 8: Test Sensation - Normal; No sensory loss + 0 9: Test Language/Aphasia - Mild-Moderate Aphasia: Some Obvious Changes, Without Significant Limitation + 1 10: Test Dysarthria - Mild-Moderate Dysarthria: Slurring but can be understood + 1 11: Test Extinction/Inattention - Visual/tactile/auditory/spatial/personal inattention + 1 NIHSS Score: 14 Patient was informed the Neurology Consult would happen via TeleHealth consult by way of interactive audio and video telecommunications and consented to receiving care in this manner. Due to the immediate potential for life-threatening deterioration due to underlying acute neurologic illness, I spent 35 minutes providing critical care. This time includes time for face to face visit via telemedicine, review of medical records, imaging studies and discussion of findings with providers, the patient and/or family. Dr Vic Pink [facility] Case [id number] Location: speech, right face, dysarthria, right arm, right leg History of same: No Place: home Severity: severe Improves With: none Worsens With: none On Anticoagulants: No - Related Data Allergies/Adverse Reactions: Allergies Allergy/AdvReac Type Severity Reaction Status Date / Time No Known Allergies Allergy Verified 06/16/19 10:42 ED Review of Systems ROS: Stated complaint: POSS CVA Other details as noted in HPI Constitutional: denies: fever Eyes: vision change ENT: denies: dental pain Respiratory: denies: wheezing Cardiovascular: denies: syncope Gastrointestinal: denies: abdominal pain Musculoskeletal: myalgia (while in her emergency department stay, the patient developed cramping in her right posterior calf.) Neurological: weakness Psychiatric: anxiety Hematological/Lymphatic: denies: easy bleeding ED Past Medical Hx - Past Medical History Previous Medical History?: Yes Hx Hypertension: Yes Hx Diabetes: Yes Additional medical history: autism - Social History Smoking Status: Never Smoker Substance Use Type: None ED Neuro Physical Exam - General Limitations: Physical Limitation General appearance: alert, anxious Suspected Stroke: Yes - NIHSS Assessment Interval: Baseline 1a. Level of Consciousness: alert/keenly responsive 1b. LOC Questions: answers both correctly 1c. LOC Commands: performs tasks correctly 2. Best Gaze: normal 3. Visual: complete hemianopia 4. Facial Palsy: partial paralysis 5b. Motor Arm Right: no movement 5a. Motor Arm Left: no drift 6a. Motor Leg Left: no drift 6b. Motor Leg Right: no gravity effort 7. Limb Ataxia: absent 8. Sensory: normal 9. Best Language: mild/moderate aphasia 10. Dysarthria: mild/moderate dysarthria 11. Extinction/Inattention: visual/tactile inattention Total Score: 14 Stroke Severity: Moderate Stroke ED Course Vital Signs 06/16/19 06/16/19 06/16/19 09:54 10:00 10:30 Temperature Pulse Rate 96 H Respiratory 16 Rate Blood Pressure 201/107 203/108 O2 Sat by Pulse 98 97 97 Oximetry 06/16/19 06/16/19 06/16/19 10:45 10:53 11:06 Temperature 97.8 F Pulse Rate 88 Respiratory 15 13 Rate Blood Pressure 163/90 O2 Sat by Pulse 97 96 Oximetry - Lab Data Result diagrams: 06/16/19 09:56 06/16/19 09:56 Lab Results 06/16/19 06/16/19 06/16/19 Range/Units 09:56 09:56 09:56 WBC 13.5 H (4.5-11.0) K/mm3 RBC 5.91 H (3.65-5.03) M/mm3 Hgb 17.5 H (10.1-14.3) gm/dl Hct 51.2 H (30.3-42.9) % MCV 87 (79-97) fl MCH 30 (28-32) pg MCHC 34 (30-34) % RDW 13.8 (13.2-15.2) % Plt Count 300 (140-440) K/mm3 Lymph % (Auto) 17.6 (13.4-35.0) % [place] % (Auto) 5.6 (0.0-7.3) % Eos % (Auto) 0.0 (0.0-4.3) % Baso % (Auto) 0.5 (0.0-1.8) % Lymph # 2.4 (1.2-5.4) K/mm3 [place] # 0.8 (0.0-0.8) K/mm3 Eos # 0.0 (0.0-0.4) K/mm3 Baso # 0.1 (0.0-0.1) K/mm3 Seg Neutrophils % 76.3 H (40.0-70.0) % Seg Neutrophils # 10.3 H (1.8-7.7) K/mm3 PT 12.9 (12.2-14.9) Sec. INR 0.96 (0.87-1.13) APTT 26.0 (24.2-36.6) Sec. Thrombin Time 18.4 (15.1-19.6) Sec. Sodium (137-145) mmol/L Potassium (3.6-5.0) mmol/L Chloride (98-107) mmol/L Carbon Dioxide (22-30) mmol/L Anion Gap mmol/L BUN (7-17) mg/dL Creatinine (0.7-1.2) mg/dL Estimated GFR ml/min BUN/Creatinine Ratio % Glucose (65-100) mg/dL Calcium (8.4-10.2) mg/dL Magnesium 1.60 L (1.7-2.3) mg/dL Total Bilirubin (0.1-1.2) mg/dL AST (5-40) units/L ALT (7-56) units/L Alkaline Phosphatase (35-129) units/L Total Creatine Kinase 33 (30-135) units/L CK-MB (CK-2) 1.8 (0.0-4.0) ng/mL CK-MB (CK-2) Rel Index 5.4 H (0-4) Troponin T 0.034 H (0.00-0.029) ng/mL Total Protein (6.3-8.2) g/dL Albumin (3.9-5) g/dL Albumin/Globulin Ratio % Triglycerides 302 H (2-149) mg/dL Cholesterol 281 H (50-199) mg/dL LDL Cholesterol Direct 207 H (50-130) mg/dL HDL Cholesterol 52 (40-59) mg/dL Cholesterol/HDL Ratio 5.40 % Salicylates (2.8-20.0) mg/dL Acetaminophen (10.0-30.0) ug/mL Plasma/Serum Alcohol (0-0.07) % 06/16/19 06/16/19 06/16/19 Range/Units 09:56 09:56 09:56 WBC (4.5-11.0) K/mm3 RBC (3.65-5.03) M/mm3 Hgb (10.1-14.3) gm/dl Hct (30.3-42.9) % MCV (79-97) fl MCH (28-32) pg MCHC (30-34) % RDW (13.2-15.2) % Plt Count (140-440) K/mm3 Lymph % (Auto) (13.4-35.0) % [place] % (Auto) (0.0-7.3) % Eos % (Auto) (0.0-4.3) % Baso % (Auto) (0.0-1.8) % Lymph # (1.2-5.4) K/mm3 [place] # (0.0-0.8) K/mm3 Eos # (0.0-0.4) K/mm3 Baso # (0.0-0.1) K/mm3 Seg Neutrophils % (40.0-70.0) % Seg Neutrophils # (1.8-7.7) K/mm3 PT (12.2-14.9) Sec. INR (0.87-1.13) APTT (24.2-36.6) Sec. Thrombin Time (15.1-19.6) Sec. Sodium (137-145) mmol/L Potassium (3.6-5.0) mmol/L Chloride (98-107) mmol/L Carbon Dioxide (22-30) mmol/L Anion Gap mmol/L BUN (7-17) mg/dL Creatinine (0.7-1.2) mg/dL Estimated GFR ml/min BUN/Creatinine Ratio % Glucose (65-100) mg/dL Calcium (8.4-10.2) mg/dL Magnesium (1.7-2.3) mg/dL Total Bilirubin (0.1-1.2) mg/dL AST (5-40) units/L ALT (7-56) units/L Alkaline Phosphatase (35-129) units/L Total Creatine Kinase (30-135) units/L CK-MB (CK-2) (0.0-4.0) ng/mL CK-MB (CK-2) Rel Index (0-4) Troponin T (0.00-0.029) ng/mL Total Protein (6.3-8.2) g/dL Albumin (3.9-5) g/dL Albumin/Globulin Ratio % Triglycerides (2-149) mg/dL Cholesterol (50-199) mg/dL LDL Cholesterol Direct (50-130) mg/dL HDL Cholesterol (40-59) mg/dL Cholesterol/HDL Ratio % Salicylates 2.0 L (2.8-20.0) mg/dL Acetaminophen < 5.0 L (10.0-30.0) ug/mL Plasma/Serum Alcohol < 0.01 (0-0.07) % 06/16/19 Range/Units 09:56 WBC (4.5-11.0) K/mm3 RBC (3.65-5.03) M/mm3 Hgb (10.1-14.3) gm/dl Hct (30.3-42.9) % MCV (79-97) fl MCH (28-32) pg MCHC (30-34) % RDW (13.2-15.2) % Plt Count (140-440) K/mm3 Lymph % (Auto) (13.4-35.0) % [place] % (Auto) (0.0-7.3) % Eos % (Auto) (0.0-4.3) % Baso % (Auto) (0.0-1.8) % Lymph # (1.2-5.4) K/mm3 [place] # (0.0-0.8) K/mm3 Eos # (0.0-0.4) K/mm3 Baso # (0.0-0.1) K/mm3 Seg Neutrophils % (40.0-70.0) % Seg Neutrophils # (1.8-7.7) K/mm3 PT (12.2-14.9) Sec. INR (0.87-1.13) APTT (24.2-36.6) Sec. Thrombin Time (15.1-19.6) Sec. Sodium 135 L (137-145) mmol/L Potassium 4.2 (3.6-5.0) mmol/L Chloride 95.3 L (98-107) mmol/L Carbon Dioxide 20 L (22-30) mmol/L Anion Gap 24 mmol/L BUN 12 (7-17) mg/dL Creatinine 0.5 L (0.7-1.2) mg/dL Estimated GFR > 60 ml/min BUN/Creatinine Ratio 24 % Glucose 342 H (65-100) mg/dL Calcium 10.1 (8.4-10.2) mg/dL Magnesium (1.7-2.3) mg/dL Total Bilirubin 0.50 (0.1-1.2) mg/dL AST 13 (5-40) units/L ALT 10 (7-56) units/L Alkaline Phosphatase 87 (35-129) units/L Total Creatine Kinase (30-135) units/L CK-MB (CK-2) (0.0-4.0) ng/mL CK-MB (CK-2) Rel Index (0-4) Troponin T (0.00-0.029) ng/mL Total Protein 7.3 (6.3-8.2) g/dL Albumin 4.2 (3.9-5) g/dL Albumin/Globulin Ratio 1.4 % Triglycerides (2-149) mg/dL Cholesterol (50-199) mg/dL LDL Cholesterol Direct (50-130) mg/dL HDL Cholesterol (40-59) mg/dL Cholesterol/HDL Ratio % Salicylates (2.8-20.0) mg/dL Acetaminophen (10.0-30.0) ug/mL Plasma/Serum Alcohol (0-0.07) % Critical care attestation.: If time is entered above; I have spent that time in minutes in the direct care of this critically ill patient, excluding procedure time. ED Disposition Clinical Impression: Acute ischemic stroke Disposition: 09 OP ADMIT IP TO THIS HOSP Is pt being admited?: Yes Does the pt Need Aspirin: Yes Condition: Serious
[2019-06-16] MEDS ORDERED: hydrALAZINE 20 MG/1 ML INJ IV PRN (12:43)
[2019-06-16] MEDS ORDERED: CLOPIDOGREL 300 MG TAB ONE (13:33)
--- NOTE | 2019-06-16 13:34 | Vascular Lab Report ---
BILATERAL CAROTID DOPPLER ULTRASOUND INDICATION : stroke TECHNIQUE: Grayscale and color Doppler imaging performed through the neck. COMPARISON: None FINDINGS: Right: There is no significant atherosclerotic disease. Peak systolic velocity in the CCA is 87 cm/ s with end-diastolic velocity of 10 cm/s. Peak systolic velocity in the proximal ICA is 93 cm/s with end-diastolic velocity of 12 cm/s. ICA to CCA ratio is less than 2. There is antegrade flow in the E CA and the vertebral artery. Left: There is no significant atherosclerotic disease. Peak systolic velocity in the CCA is 108 cm/s with end-diastolic velocity of 12 cm/s. Peak systolic velocity in the proximal ICA is 84 cm/s with en d-diastolic velocity of 22 cm/s. ICA to CCA ratio is less than 2. There is antegrade flow in the ECA and the vertebral artery. IMPRESSION: No hemodynamically significant stenosis by NASCET criteria. Signer Name: Thuan John Jr, MD Signed: 06/16/2019 1:30 PM Workstation Name: [id number]
[2019-06-16] MEDS ORDERED: ASPIRIN 325 MG TAB ONE (13:49)
[2019-06-16 16:36] LABS: Free T4 (Free Thyroxine) 1.68 ng/dL (0.76-1.46)
--- NOTE | 2019-06-16 18:06 | Consultation ---
History of Present Illness Consult date: 06/16/19 Chief complaint: right sided weakness History of present illness: This is a 53 YO F who presented to the ED with weakness on the right. Sleeping on my arrival, all history is as per the chart.No family at bedside. Past History Past Medical History: No medical history, hypertension, hyperlipidemia, other Past Surgical History: No surgical history, Other (reviewed) Social history: , lives with family. denies: smoking, alcohol abuse, prescription drug abuse Family history: hypertension Medications and Allergies Allergies Allergy/AdvReac Type Severity Reaction Status Date / Time No Known Allergies Allergy Verified 06/16/19 10:42 Active Meds: Active Medications Acetaminophen (Tylenol) 650 mg PO Q4H PRN PRN Reason: Pain, Mild (1-3) Albuterol (Proventil) 2.5 mg IH Q3HRT PRN PRN Reason: Shortness Of Breath Aspirin (Aspirin) 325 mg PO QDAY BRAN Atorvastatin Calcium (Lipitor) 40 mg PO QHS BRAN Bisacodyl (Dulcolax) 10 mg MA QDAY PRN PRN Reason: Constipation Heparin Sodium (Porcine) (Heparin) 5,000 unit SUB-Q Q12HR BRAN Hydralazine HCl (Apresoline) 10 mg IV Q8HR PRN PRN Reason: Hypertension Magnesium Hydroxide (Milk Of Magnesia) 30 ml PO Q4H PRN PRN Reason: Constipation Metoclopramide HCl (Reglan) 10 mg PO Q6H PRN PRN Reason: Nausea And Vomiting Ondansetron HCl (Zofran) 4 mg IV Q8H PRN PRN Reason: Nausea And Vomiting Pneumococcal Polyvalent Vaccine (Pneumovax 23) 0.5 ml IM .ONCE ONE Stop: 06/17/19 12:01 Promethazine HCl (Phenergan) 25 mg MA Q6H PRN PRN Reason: Nausea And Vomiting Sodium Chloride (Sodium Chloride Flush Syringe 10 Ml) 10 ml IV PRN PRN PRN Reason: LINE FLUSH Stop: 06/19/19 11:48 Review of Systems ROS unobtainable: due to mental status Physical Examination - Vital Signs Vital Signs: Vital Signs Pulse Resp BP Pulse Ox 96 H 16 201/107 97 06/16/19 09:54 06/16/19 09:54 06/16/19 09:54 06/16/19 09:54 - Constitutional General appearance: comfortable - EENT EENT: Present: mucous membranes moist - Respiratory Respiratory: Present: lungs clear - Cardiovascular Cardiovascular: Present: regular rate - Gastrointestinal Gastrointestinal: Present: normoactive bowel sounds - Integumentary Integumentary: Present: normal - Neurologic Cranial nerve examination: PERRL, EOMI, V1/V2/V3 grossly intact, face symmetric Speech examination: other (sleeping) Detailed motor examination: grossly full strength in Reflexes: 1+: ankle, bicep, knee, tricep - Additional Exam Additional Exam: CTA head and neck- multiple areas of stenosis, no occlusion Results - Laboratory Findings CBC and BMP: 06/16/19 09:56 06/16/19 09:56 Abnormal Lab Findings: Abnormal Labs 06/16/19 06/16/19 06/16/19 09:56 09:56 09:56 WBC 13.5 H RBC 5.91 H Hgb 17.5 H Hct 51.2 H Seg Neutrophils % 76.3 H Seg Neutrophils # 10.3 H Sodium Chloride Carbon Dioxide Creatinine Glucose POC Glucose Magnesium 1.60 L CK-MB (CK-2) Rel Index 5.4 H Troponin T 0.034 H Triglycerides 302 H Cholesterol 281 H LDL Cholesterol Direct 207 H Free T4 Salicylates 2.0 L Acetaminophen 06/16/19 06/16/19 06/16/19 09:56 09:56 14:59 WBC RBC Hgb Hct Seg Neutrophils % Seg Neutrophils # Sodium 135 L Chloride 95.3 L Carbon Dioxide 20 L Creatinine 0.5 L Glucose 342 H POC Glucose Magnesium CK-MB (CK-2) Rel Index Troponin T Triglycerides Cholesterol LDL Cholesterol Direct Free T4 1.68 H Salicylates Acetaminophen < 5.0 L 06/16/19 16:48 WBC RBC Hgb Hct Seg Neutrophils % Seg Neutrophils # Sodium Chloride Carbon Dioxide Creatinine Glucose POC Glucose 248 H Magnesium CK-MB (CK-2) Rel Index Troponin T Triglycerides Cholesterol LDL Cholesterol Direct Free T4 Salicylates Acetaminophen Assessment and Plan This is a 53 YO F with acute right sided weakness, ruling out stroke Recommend: MRI Brain CTA with multiple areas of atherosclerosis, treat medically, will start Plavix, stop aspirin, continue statin, VTE prophylaxis Lipids and A1C PT/OT/ST Continue care for all medical issues as you are doing
[2019-06-16] MEDS: INSULIN LISPRO 100 UNIT/ML SUB-Q SCH (22:59)
[2019-06-16] MEDS: HEPARIN 5,000 UNIT/1 ML VIAL SUB-Q SCH (23:00)
[2019-06-17 07:18] LABS: Basophils # (Auto) 0.1 K/mm3 (0.0-0.1); Basophils % (Auto) 0.6 % (0.0-1.8); Eosinophils % (Auto) 0.2 % (0.0-4.3); Hematocrit 50.2 % (30.3-42.9); Hemoglobin 17.2 gm/dl (10.1-14.3); Lymphocytes # (Auto) 2.5 K/mm3 (1.2-5.4); Lymphocytes % (Auto) 27.5 % (13.4-35.0); Mean Corpuscular HGB Conc 34 % (30-34); Mean Corpuscular Volume 86 fl (79-97); Monocytes # (Auto) 0.7 K/mm3 (0.0-0.8); Monocytes % (Auto) 7.4 % (0.0-7.3); Platelet Count 296 K/mm3 (140-440); Red Blood Count 5.84 M/mm3 (3.65-5.03); Red Cell Distribution Width 13.8 % (13.2-15.2)
[2019-06-17] MEDS: INSULIN LISPRO 100 UNIT/ML SUB-Q SCH ×4 (09:17→22:46)
[2019-06-17] MEDS ORDERED: ASPIRIN 325 MG TAB PO SCH (10:00)
--- NOTE | 2019-06-17 11:15 | Progress Note ---
Assessment and Plan /Acute CVA (cerebral vascular accident) Admitted with CVA Protocol: Status post CT HEAD, CTA Head neck, Teleneurology/neurology service consulted, Continue neuro check, statin therapy, Antiplatelet therapy, Ordered for swallow evaluation, PT/OT/Speech Therapy, Pending Echo, Carotid doppler, MRI brain. Case management consulted regarding D/C Planning/Placement. / Right hemiparesis PT/OT consulted, secondary to CVA Need acute rehabilitation / Hypertensive urgency, malignant Monitor BP q shift, status post permissive HTN overnight, Placed on IV hydralazine prn for SBP>170 Will also add Norvasc and Coreg / DVT prophylaxis SCD to BLE while in bed, prophylactic heparin Subjective Date of service: 06/17/19 Interval history: Patient seen and examined Could not get MRI today as she was very anxious and agitated OT recommended to acute rehabilitation Patient denies any chest pain or short of breath Objective - Exam Narrative Exam: GENERAL: well-developed and well-nourished elderly white female lying on bed appeared to be in no discomfort. HEENT: Normocephalic. Atraumatic. No conjunctival congestion or icterus. Patient has moist mucous membranes. NECK: Supple. Trachea midline. CHEST/LUNGS: Clear to auscultated bilaterally, breathing nonlabored. No wheezes crackles or rhonchi. HEART/CARDIOVASCULAR: Regular in rate and rhythm. S1 and S2 positive. ABDOMEN: Abdomen is soft, nontender. Patient has normal bowel sounds. SKIN: There is no rash. Warm and dry. NEURO: Right-sided hemiparesis/weakness. Follows command. MUSCULOSKELETAL: No joint effusion or tenderness. EXTRIMITY: No edema, no cyanosis or clubbing. PSYCH: Cooperative. - Constitutional Vitals: Vital Signs - 12hr 06/17/19 06/17/19 04:52 05:38 Temperature 98.7 F 97.8 F Pulse Rate 78 86 Respiratory 20 20 Rate Blood Pressure 215/104 184/78 O2 Sat by Pulse 94 96 Oximetry - Labs CBC & Chem 7: 06/17/19 06:58 06/17/19 11:41 Labs: Abnormal lab results 06/16/19 06/16/19 06/16/19 Range/Units 14:59 16:48 22:57 RBC (3.65-5.03) M/mm3 Hgb (10.1-14.3) gm/dl Hct (30.3-42.9) % [place] % (Auto) (0.0-7.3) % POC Glucose 248 H 254 H (70-105) Free T4 1.68 H (0.76-1.46) ng/dL 06/17/19 06/17/19 Range/Units 06:58 08:18 RBC 5.84 H (3.65-5.03) M/mm3 Hgb 17.2 H (10.1-14.3) gm/dl Hct 50.2 H (30.3-42.9) % [place] % (Auto) 7.4 H (0.0-7.3) % POC Glucose 266 H (70-105) Free T4 (0.76-1.46) ng/dL
[2019-06-17] MEDS ORDERED: hydrALAZINE 20 MG/1 ML INJ IV PRN (11:23)
[2019-06-17] MEDS: LORazepam 2 MG/ML VIAL IV PRN (11:56)
[2019-06-17] MEDS ORDERED: PNEUMOCOCCAL 23 Valent 0.5 ML VIAL IM ONE (12:00)
[2019-06-17] MEDS ORDERED: FLU VACC QUAD 2019-20 (3 YR UP)/PF 60 MCG/0.5 ML SYRINGE IM ONE (12:00)
[2019-06-17] MEDS: HEPARIN 5,000 UNIT/1 ML VIAL SUB-Q SCH ×2 (12:20→21:15)
[2019-06-17] MEDS: CLOPIDOGREL 75 MG TAB PO SCH (12:21)
[2019-06-17 12:25] LABS: BUN/Creatinine Ratio 26; Blood Urea Nitrogen 13 mg/dL (7-17); Calcium 9.8 mg/dL (8.4-10.2); Hemolysis Index 10
[2019-06-17] MEDS: amLODIPine 10 MG TAB PO SCH (12:38)
--- NOTE | 2019-06-17 14:59 | XRay Report ---
CHEST 1 VIEW INDICATION / CLINICAL INFORMATION: cva. COMPARISON: None available. FINDINGS: SUPPORT DEVICES: None. HEART / MEDIASTINUM: Cardiac silhouette size is upper limits of normal. LUNGS / PLEURA: No significant pulmonary or pleural abnormality. No pneumothorax. ADDITIONAL FINDINGS: No significant additional findings. IMPRESSION: 1. No acute findings. Signer Name: Юлия Lobo MD Signed: 06/17/2019 2:54 PM Workstation Name: [id number]
[2019-06-18] MEDS: INSULIN LISPRO 100 UNIT/ML SUB-Q SCH ×4 (09:08→23:10)
[2019-06-18] MEDS: amLODIPine 10 MG TAB PO SCH (11:06)
[2019-06-18] MEDS: HEPARIN 5,000 UNIT/1 ML VIAL SUB-Q SCH ×2 (11:06→23:09)
[2019-06-18] MEDS: CLOPIDOGREL 75 MG TAB PO SCH (11:07)
[2019-06-18] MEDS: carvediloL 6.25 MG TAB PO SCH ×2 (11:08→23:10)
[2019-06-18] MEDS: LISINOPRIL 10 MG TAB PO SCH (11:12)
--- NOTE | 2019-06-18 13:37 | Progress Note ---
Assessment and Plan /Acute CVA (cerebral vascular accident) Admitted with CVA Protocol: Status post CT HEAD, CTA Head neck, Teleneurology/neurology service consulted, Continue neuro check, statin therapy, Antiplatelet therapy, Ordered for swallow evaluation, PT/OT/Speech Therapy, Pending Echo, Carotid doppler, MRI brain. Case management consulted regarding D/C Planning/Placement. / Right hemiparesis PT/OT consulted, secondary to CVA Need acute rehabilitation / Hypertensive urgency, malignant Monitor BP q shift, status post permissive HTN overnight, Placed on IV hydralazine prn for SBP>170 also added Norvasc, lisinopril and Coreg /DM type 2 - a1c 11.2, cont consistent carb diet and SSI / DVT prophylaxis SCD to BLE while in bed, prophylactic heparin Disposition: Discharged pending on MRI brain and an arrangement for acute rehabilitation Subjective Date of service: 06/18/19 Interval history: Patient seen and examined Complaints of right-sided weakness, had speech eval and approved for pureed Diet OT recommended to acute rehabilitation - PT pulse 2 pending Patient denies any chest pain or short of breath Objective - Exam Narrative Exam: GENERAL: well-developed and well-nourished elderly white female lying on bed appeared to be in no discomfort. HEENT: Normocephalic. Atraumatic. No conjunctival congestion or icterus. Patient has moist mucous membranes. NECK: Supple. Trachea midline. CHEST/LUNGS: Clear to auscultated bilaterally, breathing nonlabored. No wheezes crackles or rhonchi. HEART/CARDIOVASCULAR: Regular in rate and rhythm. S1 and S2 positive. ABDOMEN: Abdomen is soft, nontender. Patient has normal bowel sounds. SKIN: There is no rash. Warm and dry. NEURO: Right-sided hemiparesis/weakness. Follows command. MUSCULOSKELETAL: No joint effusion or tenderness. EXTRIMITY: No edema, no cyanosis or clubbing. PSYCH: Cooperative. - Constitutional Vitals: Vital Signs - 12hr 06/18/19 06/18/19 06/18/19 05:26 08:17 11:04 Temperature 99.0 F Pulse Rate 90 97 H Respiratory 20 Rate Blood Pressure 176/75 183/96 O2 Sat by Pulse 92 92 93 Oximetry 06/18/19 06/18/19 06/18/19 11:06 11:08 11:12 Temperature Pulse Rate 96 H 96 H 96 H Respiratory Rate Blood Pressure 183/96 183/96 183/96 O2 Sat by Pulse Oximetry 06/18/19 12:06 Temperature 99.0 F Pulse Rate 96 H Respiratory 20 Rate Blood Pressure 175/92 O2 Sat by Pulse 92 Oximetry - Labs CBC & Chem 7: 06/17/19 06:58 06/17/19 11:41 Labs: Abnormal lab results 06/17/19 06/17/19 06/17/19 Range/Units 12:06 16:02 21:31 POC Glucose 262 H 259 H 266 H (70-105) 06/18/19 Range/Units 08:17 POC Glucose 239 H (70-105)
[2019-06-18] MEDS: ACETAMINOPHEN 325 MG TAB PO PRN ×2 (13:58→18:11)
[2019-06-19] MEDS: INSULIN LISPRO 100 UNIT/ML SUB-Q SCH ×2 (07:30→11:30)
[2019-06-19] MEDS: INSULIN REGULAR, HUMAN 100 UNITS/1 ML SUB-Q SCH ×3 (07:30→22:00)
[2019-06-19] MEDS: carvediloL 6.25 MG TAB PO SCH ×3 (08:00→22:59)
[2019-06-19] MEDS: CLOPIDOGREL 75 MG TAB PO SCH (09:23)
[2019-06-19] MEDS: LISINOPRIL 10 MG TAB PO SCH (09:24)
[2019-06-19] MEDS: amLODIPine 10 MG TAB PO SCH (09:24)
[2019-06-19] MEDS: HEPARIN 5,000 UNIT/1 ML VIAL SUB-Q SCH ×2 (09:24→23:02)
--- NOTE | 2019-06-19 13:34 | Progress Note ---
Assessment and Plan /Acute CVA (cerebral vascular accident) Admitted with CVA Protocol: Status post CT HEAD, CTA Head neck, Teleneurology/neurology service consulted, Continue neuro check, statin therapy, Antiplatelet therapy, Ordered for PT/OT/Speech Therapy - Now on pureed diet, need acute rehab Pending MRI brain as pt gets agitated preserved Ef on 2d echo, no stenosis on carotid doppler Case management consulted regarding D/C Planning/Placement. / Right hemiparesis PT/OT consulted, secondary to CVA Need acute rehabilitation / Hypertensive urgency, malignant - now stable Monitor BP q shift, status post permissive HTN overnight, Placed on IV hydralazine prn for SBP>170 also added Norvasc, lisinopril and Coreg /DM type 2 - a1c 11.2, cont consistent carb diet and SSI / DVT prophylaxis SCD to BLE while in bed, prophylactic heparin Disposition: Discharged pending on MRI brain and an arrangement for acute rehabilitation Subjective Date of service: 06/19/19 Interval history: Patient seen and examined tolerating pureed Diet OT recommended to acute rehabilitation - PT eval pending Patient denies any chest pain or short of breath Tried for MRI brain again today but she remained agitated after 4 mg total ativan and 5mg of haldol Objective - Exam Narrative Exam: GENERAL: well-developed and well-nourished elderly white female lying on bed appeared to be in no discomfort. HEENT: Normocephalic. Atraumatic. No conjunctival congestion or icterus. Patient has moist mucous membranes. NECK: Supple. Trachea midline. CHEST/LUNGS: Clear to auscultated bilaterally, breathing nonlabored. No wheezes crackles or rhonchi. HEART/CARDIOVASCULAR: Regular in rate and rhythm. S1 and S2 positive. ABDOMEN: Abdomen is soft, nontender. Patient has normal bowel sounds. SKIN: There is no rash. Warm and dry. NEURO: Right-sided hemiparesis/weakness. Follows command. MUSCULOSKELETAL: No joint effusion or tenderness. EXTRIMITY: No edema, no cyanosis or clubbing. PSYCH: Cooperative. - Constitutional Vitals: Vital Signs - 12hr 06/19/19 06/19/19 06/19/19 06:05 10:00 11:10 Temperature 97.8 F 98.2 F Pulse Rate 75 81 Respiratory 18 19 Rate Blood Pressure 139/80 141/71 O2 Sat by Pulse 94 96 92 Oximetry - Labs CBC & Chem 7: 06/17/19 06:58 06/17/19 11:41 Labs: Abnormal lab results 06/18/19 06/18/19 06/18/19 Range/Units 12:54 14:28 16:40 POC Glucose 287 H 232 H (70-105) Hemoglobin A1c 11.2 H (4-6) % 06/18/19 06/19/19 06/19/19 Range/Units 22:11 08:20 11:20 POC Glucose 294 H 259 H 280 H (70-105) Hemoglobin A1c (4-6) %
[2019-06-19] MEDS: LORazepam 2 MG/ML VIAL IV PRN (13:39)
[2019-06-19] MEDS ORDERED: LORazepam 2 MG/ML VIAL IV ONE (14:05)
[2019-06-19] MEDS ORDERED: HALOPERIDOL LACTATE 5 MG/1 ML INJ IM PRN (14:20)
[2019-06-20] MEDS: INSULIN REGULAR, HUMAN 100 UNITS/1 ML SUB-Q SCH ×4 (07:30→23:10)
[2019-06-20] MEDS: ACETAMINOPHEN 325 MG TAB PO PRN (08:50)
[2019-06-20] MEDS: CLOPIDOGREL 75 MG TAB PO SCH (09:45)
[2019-06-20] MEDS: HEPARIN 5,000 UNIT/1 ML VIAL SUB-Q SCH ×2 (09:45→23:09)
[2019-06-20] MEDS: LISINOPRIL 10 MG TAB PO SCH (09:45)
[2019-06-20] MEDS: carvediloL 6.25 MG TAB PO SCH ×2 (09:45→23:10)
[2019-06-20] MEDS: amLODIPine 10 MG TAB PO SCH (09:45)
--- NOTE | 2019-06-20 12:04 | Progress Note ---
Assessment and Plan /Acute CVA (cerebral vascular accident) Admitted with CVA Protocol: Status post CT HEAD, CTA Head neck, Teleneurology/neurology service consulted, Continue neuro check, statin therapy, Antiplatelet therapy, Ordered for PT/OT/Speech Therapy - Now on pureed diet, need acute rehab Pending MRI brain as pt gets agitated - ordered for repeat CT head today preserved Ef on 2d echo, no stenosis on carotid doppler Case management consulted regarding D/C Planning/Placement. / Right hemiparesis PT/OT consulted, secondary to CVA Need acute rehabilitation / Hypertensive urgency, malignant - now stable Monitor BP q shift, status post permissive HTN overnight, Placed on IV hydralazine prn for SBP>170 also added Norvasc, lisinopril and Coreg /DM type 2 - a1c 11.2, cont consistent carb diet and SSI / DVT prophylaxis SCD to BLE while in bed, prophylactic heparin Disposition: Discharged pending on repeat CT head and an arrangement for acute rehabilitation Subjective Date of service: 06/20/19 Interval history: Patient seen and examined tolerating pureed Diet OT recommended to acute rehabilitation Patient denies any chest pain or short of breath Plan for repeat CT head today Objective - Exam Narrative Exam: GENERAL: well-developed and well-nourished elderly white female lying on bed appeared to be in no discomfort. HEENT: Normocephalic. Atraumatic. No conjunctival congestion or icterus. Patient has moist mucous membranes. NECK: Supple. Trachea midline. CHEST/LUNGS: Clear to auscultated bilaterally, breathing nonlabored. No wheezes crackles or rhonchi. HEART/CARDIOVASCULAR: Regular in rate and rhythm. S1 and S2 positive. ABDOMEN: Abdomen is soft, nontender. Patient has normal bowel sounds. SKIN: There is no rash. Warm and dry. NEURO: Right-sided hemiparesis/weakness. Follows command. dysarthic MUSCULOSKELETAL: No joint effusion or tenderness. EXTRIMITY: No edema, no cyanosis or clubbing. PSYCH: Cooperative. - Constitutional Vitals: Vital Signs - 12hr 06/20/19 06/20/19 04:52 10:00 Temperature 98.0 F Pulse Rate 85 Respiratory 20 Rate Blood Pressure 139/79 O2 Sat by Pulse 92 94 Oximetry - Labs CBC & Chem 7: 06/17/19 06:58 06/17/19 11:41 Labs: Abnormal lab results 06/19/19 06/19/19 06/19/19 Range/Units 11:20 17:35 23:43 POC Glucose 280 H 233 H 188 H (70-105) 06/20/19 06/20/19 Range/Units 07:55 11:51 POC Glucose 249 H 240 H (70-105)
--- NOTE | 2019-06-20 14:01 | Cat Scan Report ---
CT HEAD WITHOUT CONTRAST INDICATION : CVA. TECHNIQUE: Axial imaging performed from the skull apex through the skull base without the use of con trast. All CT scans at this location are performed using CT dose reduction for ALARA by means of aut omated exposure control. COMPARISON: 06/16/2019 FINDINGS: The quality of the examination is degraded by motion. Parenchyma: Greater hypodensity involving the left basal ganglia, medial left temporal lobe, monsivais radiata and left centrum semiovale when compared to the most recent exam. No new hypodensity. Minimal mass effect. No hemorrhage. Ventricles: Ventricles are normal in size and appear symmetric. Soft tissues: Soft tissues including the orbits appear normal. Bones: No acute osseous abnormality. Sinuses: Sinuses and mastoid air cells are clear. IMPRESSION: Subacute multifocal nonhemorrhagic left hemispheric infarcts. No acute change. Signer Name: Kevin Bundy MD Signed: 06/20/2019 1:57 PM Workstation Name: [id number]
[2019-06-21] MEDS: HEPARIN 5,000 UNIT/1 ML VIAL SUB-Q SCH ×2 (10:14→22:01)
[2019-06-21] MEDS: amLODIPine 10 MG TAB PO SCH (10:14)
[2019-06-21] MEDS: LISINOPRIL 10 MG TAB PO SCH (10:14)
[2019-06-21] MEDS: CLOPIDOGREL 75 MG TAB PO SCH (10:14)
[2019-06-21] MEDS: carvediloL 6.25 MG TAB PO SCH ×2 (10:14→22:13)
[2019-06-21] MEDS: INSULIN REGULAR, HUMAN 100 UNITS/1 ML SUB-Q SCH ×4 (10:15→22:01)
--- NOTE | 2019-06-21 14:01 | Progress Note ---
Assessment and Plan /Acute CVA (cerebral vascular accident) Admitted with CVA Protocol: Status post CT HEAD, CTA Head neck, Teleneurology/neurology service consulted, Continue neuro check, statin therapy, Antiplatelet therapy, Ordered for PT/OT/Speech Therapy - Now on pureed diet, need acute rehab Pending MRI brain as pt gets agitated - ordered for repeat CT head which showed evolution of infarct in left subcortical/cortical region. preserved Ef on 2d echo, no stenosis on carotid doppler Case management consulted regarding D/C Planning/Placement. / Right hemiparesis PT/OT consulted, secondary to CVA Need acute rehabilitation / Hypertensive urgency, malignant - now stable Monitor BP q shift, status post permissive HTN overnight, Placed on IV hydralazine prn for SBP>170 also added Norvasc, lisinopril and Coreg /DM type 2 - a1c 11.2, cont consistent carb pureed diet and SSI / DVT prophylaxis SCD to BLE while in bed, prophylactic heparin Disposition: Discharged pending on arrangement for acute rehabilitation Subjective Date of service: 06/21/19 Interval history: Patient seen and examined tolerating pureed Diet OT recommended to acute rehabilitation Patient denies any chest pain or short of breath Pending placement Objective - Exam Narrative Exam: GENERAL: well-developed and well-nourished elderly white female lying on bed appeared to be in no discomfort. HEENT: Normocephalic. Atraumatic. No conjunctival congestion or icterus. Patient has moist mucous membranes. NECK: Supple. Trachea midline. CHEST/LUNGS: Clear to auscultated bilaterally, breathing nonlabored. No wheezes crackles or rhonchi. HEART/CARDIOVASCULAR: Regular in rate and rhythm. S1 and S2 positive. ABDOMEN: Abdomen is soft, nontender. Patient has normal bowel sounds. SKIN: There is no rash. Warm and dry. NEURO: Right-sided hemiparesis/weakness. Follows command. dysarthic MUSCULOSKELETAL: No joint effusion or tenderness. EXTRIMITY: No edema, no cyanosis or clubbing. PSYCH: Cooperative. - Constitutional Vitals: Vital Signs - 12hr 06/21/19 06/21/19 06/21/19 06:05 09:02 10:14 Temperature 98.0 F Pulse Rate 76 82 Respiratory 20 Rate Blood Pressure 144/76 144/75 O2 Sat by Pulse 94 94 Oximetry 06/21/19 11:22 Temperature 97.3 F L Pulse Rate 74 Respiratory 20 Rate Blood Pressure 148/73 O2 Sat by Pulse 91 Oximetry - Labs CBC & Chem 7: 06/17/19 06:58 06/21/19 14:31 Labs: Abnormal lab results 06/20/19 06/20/19 06/21/19 Range/Units 16:42 21:41 08:05 POC Glucose 231 H 255 H 262 H (70-105) 06/21/19 Range/Units 11:30 POC Glucose 280 H (70-105)
--- NOTE | 2019-06-21 14:53 | Consultation ---
History of Present Illness Consult date: 06/21/19 Reason for Consult: Stroke Chief complaint: Right sided weakness, slurred speech. History of present illness: Patient is a 53 y/o woman w/ no previous PMH. She presented on 06/16/19 after a fall w/ symptoms of right sided weakness, right facial droop, slurred speech, and decreased vision on the right field. Patient was outside of the time window for tPA, and has been palced on plavix. Repeat CT head showed evolution of infarct in left subcortical/cortical region. Past History Past Medical History: No medical history, hypertension, hyperlipidemia, other Past Surgical History: No surgical history, Other (reviewed) Social history: , lives with family. denies: smoking, alcohol abuse, prescription drug abuse Family history: hypertension Medications and Allergies Allergies Allergy/AdvReac Type Severity Reaction Status Date / Time No Known Allergies Allergy Verified 06/16/19 10:42 Active Meds: Active Medications Acetaminophen (Tylenol) 650 mg PO Q4H PRN PRN Reason: Pain, Mild (1-3) Last Admin: 06/20/19 08:50 Dose: 650 mg Documented by: Albuterol (Proventil) 2.5 mg IH Q3HRT PRN PRN Reason: Shortness Of Breath Amlodipine Besylate (Amlodipine) 10 mg PO QDAY [facility] Last Admin: 06/21/19 10:14 Dose: 10 mg Documented by: Atorvastatin Calcium (Lipitor) 40 mg PO QHS [facility] Last Admin: 06/20/19 23:10 Dose: 40 mg Documented by: Bisacodyl (Dulcolax) 10 mg IA QDAY PRN PRN Reason: Constipation Carvedilol (Coreg) 6.25 mg PO BID [facility] Last Admin: 06/21/19 10:14 Dose: 6.25 mg Documented by: Clopidogrel Bisulfate (Plavix) 75 mg PO QDAY [facility] Last Admin: 06/21/19 10:14 Dose: 75 mg Documented by: Haloperidol Lactate (Haldol) 5 mg IM Q6H PRN PRN Reason: Agitation Last Admin: 06/19/19 14:50 Dose: 5 mg Documented by: Heparin Sodium (Porcine) (Heparin) 5,000 unit SUB-Q Q12HR [facility] Last Admin: 06/21/19 10:14 Dose: 5,000 unit Documented by: Hydralazine HCl (Apresoline) 5 mg IV Q30MIN PRN PRN Reason: Hypertension Insulin Human Regular (Humulin R) 0 units SUB-Q ACHS [facility]; Protocol Last Admin: 06/21/19 12:49 Dose: 3 units Documented by: Lisinopril (Zestril) 10 mg PO QDAY [facility] Last Admin: 06/21/19 10:14 Dose: 10 mg Documented by: Magnesium Hydroxide (Milk Of Magnesia) 30 ml PO Q4H PRN PRN Reason: Constipation Metoclopramide HCl (Reglan) 10 mg PO Q6H PRN PRN Reason: Nausea And Vomiting Ondansetron HCl (Zofran) 4 mg IV Q8H PRN PRN Reason: Nausea And Vomiting Promethazine HCl (Phenergan) 25 mg IA Q6H PRN PRN Reason: Nausea And Vomiting Review of Systems All systems: negative Neurological: weakness, numbness, change in speech, loss of vision Physical Examination - Vital Signs Vital Signs: Vital Signs Pulse Resp BP Pulse Ox 96 H 16 201/107 97 06/16/19 09:54 06/16/19 09:54 06/16/19 09:54 06/16/19 09:54 - Physical Exam Narrative exam: Patient is awake, alert, oriented x self, follows complex commands. Noted to have dysarthria. No aphasia. PERRL, EOMI, right HH, b/l intact to LT, tongue midline, Right facial weakness. 0/5 in RUE, 2/5 inRLE, 5/5 in LUE/LLE. B/l in tact to LT. Unable to assess FTN and HTS on Rt. due to weakness, intact on left. 2+ reflexes throughout. - Constitutional General appearance: comfortable - EENT EENT: Present: ATNC, PERRL, mucous membranes moist - Respiratory Respiratory: Present: lungs clear, normal breath sounds - Cardiovascular Cardiovascular: Present: regular rate, normal S1, normal S2 Extremities: Present: no clubbing, cyanosis, no inflammation - Gastrointestinal Gastrointestinal: Present: normoactive bowel sounds, soft, non-tender - Integumentary Integumentary: Present: normal - Musculoskeletal Musculoskeletal: Present: no fluid collection, no pain - Psychiatric Psychiatric: Present: mood/affect appropriate - Level of Consciousness 1a. Level of Consciousness: alert/keenly responsive - LOC Questions 1b. LOC Questions: answers both correctly - LOC Command 1c. LOC Commands: performs tasks correctly - Best Gaze 2. Best Gaze: normal - Visual 3. Visual: complete hemianopia - Facial Palsy 4. Facial Palsy: partial paralysis - Motor Arm 5a. Motor Arm Left: no drift 5b. Motor Arm Right: no movement - Motor Leg 6a. Motor Leg Left: no drift 6b. Motor Leg Right: no gravity effort - Limb Ataxia 7. Limb Ataxia: absent - Sensory 8. Sensory: normal - Best Language 9. Best Language: no aphasia - Dysarthria 10. Dysarthria: mild/moderate dysarthria - Extinction and Inattention 11. Extinction/Inattention: no abnormality - Scoring Total Score: 12 Stroke Severity: Moderate Stroke Results - Laboratory Findings CBC and BMP: 06/17/19 06:58 06/17/19 11:41 Abnormal Lab Findings: Abnormal Labs 06/16/19 06/16/19 06/16/19 09:56 09:56 09:56 WBC 13.5 H RBC 5.91 H Hgb 17.5 H Hct 51.2 H [place] % (Auto) Seg Neutrophils % 76.3 H Seg Neutrophils # 10.3 H Sodium Chloride Carbon Dioxide Creatinine Glucose POC Glucose Hemoglobin A1c Magnesium 1.60 L CK-MB (CK-2) Rel Index 5.4 H Troponin T 0.034 H Triglycerides 302 H Cholesterol 281 H LDL Cholesterol Direct 207 H Free T4 Salicylates 2.0 L Acetaminophen 06/16/19 06/16/19 06/16/19 09:56 09:56 14:59 WBC RBC Hgb Hct [place] % (Auto) Seg Neutrophils % Seg Neutrophils # Sodium 135 L Chloride 95.3 L Carbon Dioxide 20 L Creatinine 0.5 L Glucose 342 H POC Glucose Hemoglobin A1c Magnesium CK-MB (CK-2) Rel Index Troponin T Triglycerides Cholesterol LDL Cholesterol Direct Free T4 1.68 H Salicylates Acetaminophen < 5.0 L 06/16/19 06/16/19 06/17/19 16:48 22:57 06:58 WBC RBC 5.84 H Hgb 17.2 H Hct 50.2 H [place] % (Auto) 7.4 H Seg Neutrophils % Seg Neutrophils # Sodium Chloride Carbon Dioxide Creatinine Glucose POC Glucose 248 H 254 H Hemoglobin A1c Magnesium CK-MB (CK-2) Rel Index Troponin T Triglycerides Cholesterol LDL Cholesterol Direct Free T4 Salicylates Acetaminophen 06/17/19 06/17/19 06/17/19 08:18 11:41 12:06 WBC RBC Hgb Hct [place] % (Auto) Seg Neutrophils % Seg Neutrophils # Sodium 136 L Chloride 97.5 L Carbon Dioxide Creatinine 0.5 L Glucose 318 H POC Glucose 266 H 262 H Hemoglobin A1c Magnesium CK-MB (CK-2) Rel Index Troponin T Triglycerides Cholesterol LDL Cholesterol Direct Free T4 Salicylates Acetaminophen 06/17/19 06/17/19 06/18/19 16:02 21:31 08:17 WBC RBC Hgb Hct [place] % (Auto) Seg Neutrophils % Seg Neutrophils # Sodium Chloride Carbon Dioxide Creatinine Glucose POC Glucose 259 H 266 H 239 H Hemoglobin A1c Magnesium CK-MB (CK-2) Rel Index Troponin T Triglycerides Cholesterol LDL Cholesterol Direct Free T4 Salicylates Acetaminophen 06/18/19 06/18/19 06/18/19 12:54 14:28 16:40 WBC RBC Hgb Hct [place] % (Auto) Seg Neutrophils % Seg Neutrophils # Sodium Chloride Carbon Dioxide Creatinine Glucose POC Glucose 287 H 232 H Hemoglobin A1c 11.2 H Magnesium CK-MB (CK-2) Rel Index Troponin T Triglycerides Cholesterol LDL Cholesterol Direct Free T4 Salicylates Acetaminophen 06/18/19 06/19/19 06/19/19 22:11 08:20 11:20 WBC RBC Hgb Hct [place] % (Auto) Seg Neutrophils % Seg Neutrophils # Sodium Chloride Carbon Dioxide Creatinine Glucose POC Glucose 294 H 259 H 280 H Hemoglobin A1c Magnesium CK-MB (CK-2) Rel Index Troponin T Triglycerides Cholesterol LDL Cholesterol Direct Free T4 Salicylates Acetaminophen 06/19/19 06/19/19 06/20/19 17:35 23:43 07:55 WBC RBC Hgb Hct [place] % (Auto) Seg Neutrophils % Seg Neutrophils # Sodium Chloride Carbon Dioxide Creatinine Glucose POC Glucose 233 H 188 H 249 H Hemoglobin A1c Magnesium CK-MB (CK-2) Rel Index Troponin T Triglycerides Cholesterol LDL Cholesterol Direct Free T4 Salicylates Acetaminophen 06/20/19 06/20/19 06/20/19 11:51 16:42 21:41 WBC RBC Hgb Hct [place] % (Auto) Seg Neutrophils % Seg Neutrophils # Sodium Chloride Carbon Dioxide Creatinine Glucose POC Glucose 240 H 231 H 255 H Hemoglobin A1c Magnesium CK-MB (CK-2) Rel Index Troponin T Triglycerides Cholesterol LDL Cholesterol Direct Free T4 Salicylates Acetaminophen 06/21/19 06/21/19 08:05 11:30 WBC RBC Hgb Hct [place] % (Auto) Seg Neutrophils % Seg Neutrophils # Sodium Chloride Carbon Dioxide Creatinine Glucose POC Glucose 262 H 280 H Hemoglobin A1c Magnesium CK-MB (CK-2) Rel Index Troponin T Triglycerides Cholesterol LDL Cholesterol Direct Free T4 Salicylates Acetaminophen Assessment and Plan Patient is a 53 y/o woman w/ no previous PMH who presented on 06/16/19 after a fall w/ symptoms of right sided weakness, slurred speech, decreased vision in right visual field, and right face droop. According to the patient's clinical findings, she has had an ischemic stroke. Plan: 1. Stroke: - MRI brain: pending - CTA head/neck: showed focal left [place] stenosis - CT head: left subcortical/cortical infarct which evolved from initial CT head. - CUS: no significant stenosis - Echo: EF 55-560%, LA normal size, bubble study negative. - Cont. Plavix - Cont. statin. - Telemetry monitoring while in house - DVT Ppx: Recommend lovenox - PT/OT/ST 2. Hypertension: - Recommend goal of normotension, as it has been >48 hours since symptoms onset. - Will continue to follow patient. Thank you for allowing me to take part in the care of this patient. Stefano Silva MD Neurology
[2019-06-21 15:30] LABS: BUN/Creatinine Ratio 33; Blood Urea Nitrogen 20 mg/dL (7-17); Calcium 9.8 mg/dL (8.4-10.2); Hemolysis Index 14
[2019-06-22] MEDS: INSULIN REGULAR, HUMAN 100 UNITS/1 ML SUB-Q SCH ×4 (09:09→23:02)
[2019-06-22] MEDS: carvediloL 6.25 MG TAB PO SCH ×2 (09:10→22:56)
[2019-06-22] MEDS: HEPARIN 5,000 UNIT/1 ML VIAL SUB-Q SCH ×2 (09:10→22:51)
[2019-06-22] MEDS: CLOPIDOGREL 75 MG TAB PO SCH (09:10)
[2019-06-22] MEDS: amLODIPine 10 MG TAB PO SCH (09:11)
[2019-06-22] MEDS: LISINOPRIL 10 MG TAB PO SCH (09:32)
--- NOTE | 2019-06-22 11:08 | Discharge Summary ---
Providers - Providers Date of Admission: 06/19/19 12:28 Date of discharge: 06/23/19 Attending physician: KEVIN MULTANI 06/16/19 11:49 Consult to Case Management [CONS] Routine Services Needed at Discharge: Other Notified:: COPY GIVEN TO CM Additional Physician Instructions: D/C Planning/Rehab/Placement Occupational Therapy Evaluate and Treat [CONS] Routine Comment: Reason For Exam: Neuro deficits Physical Therapy Evaluation and Treat [CONS] Routine Comment: Reason For Exam: Neuro deficits 06/16/19 11:51 Consult to Physician [CONS] Routine Comment: Consulting Provider: GUTIERREZ FUENTES Physician Instructions: Reason For Exam: CVA 06/16/19 14:24 Speech Therapy Evaluation and Treat [CONS] Urgent Reason For Exam: CVA 06/21/19 14:02 Consult to Physician [CONS] Routine Comment: Consulting Provider: TOD DE LA VEGA Physician Instructions: Reason For Exam: acute CVA Primary care physician: MEDICAL ASSISTANT PER DIEM Hospitalization Condition: Serious Pertinent studies: Head CTs Head/neck CTA 2d echo Carotid doppler Cervical neck CTA Hospital course: Patient is a 53 y/o woman w/ no previous PMH. She presented on 06/16/19 after a fall w/ symptoms of right sided weakness, right facial droop, slurred speech, and decreased vision on the right field. Patient was outside of the time window for tPA, and has been palced on plavix. Repeat CT head showed evolution of infarct in left subcortical/cortical region. Discharge diagnosis and Mx: /Acute CVA (cerebral vascular accident) Admitted with CVA Protocol: Status post CT HEAD, CTA Head neck, Teleneurology/neurology service consulted, Continue neuro check, statin therapy, Antiplatelet therapy, Ordered for PT/OT/Speech Therapy - Now on pureed diet, need sub acute rehab per recent eval by PT Pending MRI brain as pt gets agitated - ordered for repeat CT head which showed evolution of infarct in left subcortical/cortical region. preserved Ef on 2d echo, no stenosis on carotid doppler Case management consulted regarding D/C Planning/Placement. / Right hemiparesis PT/OT consulted, secondary to CVA Need acute rehabilitation / Hypertensive urgency, malignant - now stable Monitor BP q shift, status post permissive HTN overnight, Placed on IV hydralazine prn for SBP>170 also added Norvasc, lisinopril and Coreg /DM type 2 - a1c 11.2, Placed on cont consistent carb pureed diet and SSI along with long acting insulin /Degenerative disk disease, need outpt f/u / DVT prophylaxis SCD to BLE while in bed, prophylactic heparin Disposition: Home with HH and family care as patient does not have CHRIS coverage with insurance Objective GENERAL: well-developed and well-nourished elderly white female lying on bed appeared to be in no discomfort. HEENT: Normocephalic. Atraumatic. No conjunctival congestion or icterus. Patient has moist mucous membranes. NECK: Supple. Trachea midline. CHEST/LUNGS: Clear to auscultated bilaterally, breathing nonlabored. No wheezes crackles or rhonchi. HEART/CARDIOVASCULAR: Regular in rate and rhythm. S1 and S2 positive. ABDOMEN: Abdomen is soft, nontender. Patient has normal bowel sounds. SKIN: There is no rash. Warm and dry. NEURO: Right-sided hemiparesis/weakness. Follows command. dysarthic MUSCULOSKELETAL: No joint effusion or tenderness. EXTRIMITY: No edema, no cyanosis or clubbing. PSYCH: Cooperative. Disposition: [id number]/[place]-06 HOME UNDER HOME [facility] Time spent for discharge: 34 minutes Core Measure Documentation - Palliative Care Palliative Care/ Comfort Measures: Not Applicable - Core Measures Any of the following diagnoses?: stroke - Stroke Discharge Requirements Statin for LDL = or >70 mg/dl on DC: Yes Anticoag for atrial fib/atrial flutter: Not Applicable Antithrombotic for ischemic stroke: Yes Exam - Constitutional Vitals: Temp Pulse Resp BP Pulse Ox 98.9 F 67 18 151/87 92 06/22/19 06:50 06/22/19 09:32 06/22/19 06:50 06/22/19 09:32 06/22/19 06:50 General appearance: Present: no acute distress, well-nourished - EENT Eyes: Present: PERRL ENT: hearing intact, clear oral mucosa - Neck Neck: Present: supple, normal ROM - Respiratory Respiratory effort: normal Respiratory: bilateral: CTA - Cardiovascular Heart Sounds: Present: S1 & S2. Absent: rub, click - Extremities Extremities: pulses symmetrical, No edema Peripheral Pulses: within normal limits - Abdominal General gastrointestinal: Present: soft, non-tender, non-distended, normal bowel sounds Female genitourinary: Present: normal - Integumentary Integumentary: Present: clear, warm, dry - Musculoskeletal Musculoskeletal: gait normal, strength equal bilaterally - Psychiatric Psychiatric: appropriate mood/affect, intact judgment & insight - Neurologic Neurologic: CNII-XII intact, moves all extremities Plan Activity: up only with assistance, fall precautions Diet: low fat, diabetic Special Instructions: record blood sugar diary Additional Instructions: need 30 days event monitor following discharge as outpt Follow up with: PRIMARY CAREMD [Primary Care Provider] - 3-5 Days FRIDA JIMENEZ MD [Staff Physician] - 7 Days Prescriptions: Gabapentin [Neurontin] 300 mg PO QPM #30 tab Insulin NPH/Regular [NovoLIN 70/30] 5 unit SQ BIDDIAB #10 ml
--- NOTE | 2019-06-22 12:38 | Progress Note ---
Assessment and Plan Patient is a 53 y/o woman w/ no previous PMH who presented on 06/16/19 after a fall w/ symptoms of right sided weakness, slurred speech, decreased vision in right visual field, and right face droop. According to the patient's clinical findings, she has had an ischemic stroke. Plan: 1. Stroke: - MRI brain: pending - CTA head/neck: showed focal left [place] stenosis - CT head: left subcortical/cortical infarct which evolved from initial CT head. - CUS: no significant stenosis - Echo: EF 55-560%, LA normal size, bubble study negative. - Cont. Plavix - Cont. statin. - Telemetry monitoring while in house - DVT Ppx: Recommend lovenox - PT/OT/ST - As stroke appears to be cryptogenic, would recommend long-term cardiac monitoring with either 30-day MCOT or ILR as outpatient. 2. Hypertension: - Recommend goal of normotension, as it has been >48 hours since symptoms onset. - Will continue to follow patient. Thank you for allowing me to take part in the care of this patient. Stefano Silva MD Neurology Subjective Date of service: 06/22/19 Principal diagnosis: Stroke Interval history: No acute events overnight. Objective - Exam Narrative Exam: Patient is awake, alert, oriented x self, follows complex commands. Noted to have dysarthria. No aphasia. PERRL, EOMI, right HH, b/l intact to LT, tongue midline, Right facial weakness. 0/5 in RUE, 2/5 in RLE, 5/5 in LUE/LLE. B/l intact to LT. Unable to assess FTN and HTS on Rt. due to weakness, intact on left. 2+ reflexes throughout. - Vital Sign Vital Signs - 12hr 06/22/19 06/22/19 06/22/19 06:50 09:10 09:11 Temperature 98.9 F Pulse Rate 67 67 67 Respiratory 18 Rate Blood Pressure 151/87 151/87 151/87 O2 Sat by Pulse 92 Oximetry 06/22/19 09:32 Temperature Pulse Rate 67 Respiratory Rate Blood Pressure 151/87 O2 Sat by Pulse Oximetry - General Apperance Constitutional: comfortable - EENT EENT: ATNC, PERRL, mucous membranes moist, hearing intact - Respiratory Respiratory: lungs clear, normal breath sounds - Cardiovascular Cardiovascular: regular rate, normal S1, normal S2 Extremities: no clubbing, cyanosis, no inflammation - Gastrointestinal Gastrointestinal: normoactive bowel sounds, soft, non-tender - Integumentary Integumentary: normal - Musculoskeletal Musculoskeletal: no fluid collection, no pain - Psychiatric Psychiatric: mood/affect appropriate - Laboratory Findings CBC and BMP: 06/17/19 06:58 06/21/19 14:31 Abnormal Lab Findings: Abnormal Labs 06/16/19 06/16/19 06/16/19 09:56 09:56 09:56 WBC 13.5 H RBC 5.91 H Hgb 17.5 H Hct 51.2 H [place] % (Auto) Seg Neutrophils % 76.3 H Seg Neutrophils # 10.3 H Sodium Chloride Carbon Dioxide BUN Creatinine Glucose POC Glucose Hemoglobin A1c Magnesium 1.60 L CK-MB (CK-2) Rel Index 5.4 H Troponin T 0.034 H Triglycerides 302 H Cholesterol 281 H LDL Cholesterol Direct 207 H Free T4 Salicylates 2.0 L Acetaminophen 06/16/19 06/16/19 06/16/19 09:56 09:56 14:59 WBC RBC Hgb Hct [place] % (Auto) Seg Neutrophils % Seg Neutrophils # Sodium 135 L Chloride 95.3 L Carbon Dioxide 20 L BUN Creatinine 0.5 L Glucose 342 H POC Glucose Hemoglobin A1c Magnesium CK-MB (CK-2) Rel Index Troponin T Triglycerides Cholesterol LDL Cholesterol Direct Free T4 1.68 H Salicylates Acetaminophen < 5.0 L 06/16/19 06/16/19 06/17/19 16:48 22:57 06:58 WBC RBC 5.84 H Hgb 17.2 H Hct 50.2 H [place] % (Auto) 7.4 H Seg Neutrophils % Seg Neutrophils # Sodium Chloride Carbon Dioxide BUN Creatinine Glucose POC Glucose 248 H 254 H Hemoglobin A1c Magnesium CK-MB (CK-2) Rel Index Troponin T Triglycerides Cholesterol LDL Cholesterol Direct Free T4 Salicylates Acetaminophen 06/17/19 06/17/19 06/17/19 08:18 11:41 12:06 WBC RBC Hgb Hct [place] % (Auto) Seg Neutrophils % Seg Neutrophils # Sodium 136 L Chloride 97.5 L Carbon Dioxide BUN Creatinine 0.5 L Glucose 318 H POC Glucose 266 H 262 H Hemoglobin A1c Magnesium CK-MB (CK-2) Rel Index Troponin T Triglycerides Cholesterol LDL Cholesterol Direct Free T4 Salicylates Acetaminophen 06/17/19 06/17/19 06/18/19 16:02 21:31 08:17 WBC RBC Hgb Hct [place] % (Auto) Seg Neutrophils % Seg Neutrophils # Sodium Chloride Carbon Dioxide BUN Creatinine Glucose POC Glucose 259 H 266 H 239 H Hemoglobin A1c Magnesium CK-MB (CK-2) Rel Index Troponin T Triglycerides Cholesterol LDL Cholesterol Direct Free T4 Salicylates Acetaminophen 06/18/19 06/18/19 06/18/19 12:54 14:28 16:40 WBC RBC Hgb Hct [place] % (Auto) Seg Neutrophils % Seg Neutrophils # Sodium Chloride Carbon Dioxide BUN Creatinine Glucose POC Glucose 287 H 232 H Hemoglobin A1c 11.2 H Magnesium CK-MB (CK-2) Rel Index Troponin T Triglycerides Cholesterol LDL Cholesterol Direct Free T4 Salicylates Acetaminophen 06/18/19 06/19/19 06/19/19 22:11 08:20 11:20 WBC RBC Hgb Hct [place] % (Auto) Seg Neutrophils % Seg Neutrophils # Sodium Chloride Carbon Dioxide BUN Creatinine Glucose POC Glucose 294 H 259 H 280 H Hemoglobin A1c Magnesium CK-MB (CK-2) Rel Index Troponin T Triglycerides Cholesterol LDL Cholesterol Direct Free T4 Salicylates Acetaminophen 06/19/19 06/19/19 06/20/19 17:35 23:43 07:55 WBC RBC Hgb Hct [place] % (Auto) Seg Neutrophils % Seg Neutrophils # Sodium Chloride Carbon Dioxide BUN Creatinine Glucose POC Glucose 233 H 188 H 249 H Hemoglobin A1c Magnesium CK-MB (CK-2) Rel Index Troponin T Triglycerides Cholesterol LDL Cholesterol Direct Free T4 Salicylates Acetaminophen 06/20/19 06/20/19 06/20/19 11:51 16:42 21:41 WBC RBC Hgb Hct [place] % (Auto) Seg Neutrophils % Seg Neutrophils # Sodium Chloride Carbon Dioxide BUN Creatinine Glucose POC Glucose 240 H 231 H 255 H Hemoglobin A1c Magnesium CK-MB (CK-2) Rel Index Troponin T Triglycerides Cholesterol LDL Cholesterol Direct Free T4 Salicylates Acetaminophen 06/21/19 06/21/19 06/21/19 08:05 11:30 14:31 WBC RBC Hgb Hct [place] % (Auto) Seg Neutrophils % Seg Neutrophils # Sodium Chloride Carbon Dioxide 21 L BUN 20 H Creatinine 0.6 L Glucose 270 H POC Glucose 262 H 280 H Hemoglobin A1c Magnesium CK-MB (CK-2) Rel Index Troponin T Triglycerides Cholesterol LDL Cholesterol Direct Free T4 Salicylates Acetaminophen 06/21/19 06/21/19 06/22/19 16:44 21:53 07:50 WBC RBC Hgb Hct [place] % (Auto) Seg Neutrophils % Seg Neutrophils # Sodium Chloride Carbon Dioxide BUN Creatinine Glucose POC Glucose 188 H 245 H 226 H Hemoglobin A1c Magnesium CK-MB (CK-2) Rel Index Troponin T Triglycerides Cholesterol LDL Cholesterol Direct Free T4 Salicylates Acetaminophen
[2019-06-23] MEDS: INSULIN REGULAR, HUMAN 100 UNITS/1 ML SUB-Q SCH (09:00)
[2019-06-23] MEDS: carvediloL 6.25 MG TAB PO SCH (09:36)
[2019-06-23] MEDS: CLOPIDOGREL 75 MG TAB PO SCH (09:36)
[2019-06-23] MEDS: LISINOPRIL 10 MG TAB PO SCH (09:36)
[2019-06-23] MEDS: amLODIPine 10 MG TAB PO SCH (09:37)
[2019-06-23] MEDS: HEPARIN 5,000 UNIT/1 ML VIAL SUB-Q SCH (09:39)
--- NOTE | 2019-06-23 11:09 | Progress Note ---
Assessment and Plan /Acute CVA (cerebral vascular accident) Admitted with CVA Protocol: Status post CT HEAD, CTA Head neck, Teleneurology/neurology service consulted, Continue neuro check, statin therapy, Antiplatelet therapy, Ordered for PT/OT/Speech Therapy - Now on pureed diet, need acute rehab Pending MRI brain as pt gets agitated - ordered for repeat CT head which showed evolution of infarct in left subcortical/cortical region. preserved Ef on 2d echo, no stenosis on carotid doppler Case management consulted regarding D/C Planning/Placement. / Right hemiparesis PT/OT consulted, secondary to CVA Need acute rehabilitation / Hypertensive urgency, malignant - now stable Monitor BP q shift, status post permissive HTN overnight, Placed on IV hydralazine prn for SBP>170 also added Norvasc, lisinopril and Coreg /DM type 2 - a1c 11.2, cont consistent carb pureed diet and SSI / DVT prophylaxis SCD to BLE while in bed, prophylactic heparin Disposition: Discharged pending on arrangement for acute rehabilitation Subjective Date of service: 06/22/19 Principal diagnosis: Stroke Interval history: Patient seen and examined tolerating pureed Diet OT recommended to acute rehabilitation Patient denies any chest pain or short of breath Pending placement Objective - Constitutional Vitals: Vital Signs - 12hr 06/23/19 06/23/19 06/23/19 00:09 05:42 09:35 Temperature 97.6 F 97.8 F Pulse Rate 64 61 65 Respiratory 17 16 Rate Blood Pressure 132/64 133/64 Blood Pressure [Left] O2 Sat by Pulse 93 96 94 Oximetry 06/23/19 06/23/19 09:36 09:38 Temperature 97.8 F Pulse Rate 65 65 Respiratory 18 Rate Blood Pressure 173/83 Blood Pressure 173/83 [Left] O2 Sat by Pulse Oximetry - Labs CBC & Chem 7: 06/17/19 06:58 06/21/19 14:31 Labs: Abnormal lab results 06/22/19 06/22/19 06/22/19 Range/Units 11:17 16:56 22:11 POC Glucose 282 H 264 H 194 H (70-105) 06/23/19 Range/Units 07:40 POC Glucose 237 H (70-105)
--- NOTE | 2019-06-23 11:15 | Progress Note ---
Assessment and Plan Patient is a 53 y/o woman w/ no previous PMH who presented on 06/16/19 after a fall w/ symptoms of right sided weakness, slurred speech, decreased vision in right visual field, and right face droop. According to the patient's clinical findings, she has had an ischemic stroke. Plan: 1. Stroke: - MRI brain: pending - CTA head/neck: showed focal left [place] stenosis - CT head: left subcortical/cortical infarct which evolved from initial CT head. - CUS: no significant stenosis - Echo: EF 55-560%, LA normal size, bubble study negative. - Cont. Plavix - Cont. statin. - Telemetry monitoring while in house - DVT Ppx: Recommend lovenox - PT/OT/ST - As stroke appears to be cryptogenic, would recommend long-term cardiac monitoring with either 30-day MCOT or ILR as outpatient. 2. Hypertension: - Recommend goal of normotension, as it has been >48 hours since symptoms onset. - Will sign off as I am not covering neurology service over the weekend. Please consult neurologist covering service over the weekend for further neurologic monitoring and management. Thank you for allowing me to take part in the care of this patient. Stefano Silva MD Neurology Subjective Date of service: 06/23/19 Principal diagnosis: Stroke Interval history: No acute events overnight. Objective - Exam Narrative Exam: Patient is awake, alert, oriented x self, follows complex commands. Noted to have dysarthria. No aphasia. PERRL, EOMI, right HH, b/l intact to LT, tongue midline, Right facial weakness. 0/5 in RUE, 2/5 in RLE, 5/5 in LUE/LLE. B/l intact to LT. Unable to assess FTN and HTS on Rt. due to weakness, intact on left. 2+ reflexes throughout. - Vital Sign Vital Signs - 12hr 06/23/19 06/23/19 06/23/19 00:09 05:42 09:35 Temperature 97.6 F 97.8 F Pulse Rate 64 61 65 Respiratory 17 16 Rate Blood Pressure 132/64 133/64 Blood Pressure [Left] O2 Sat by Pulse 93 96 94 Oximetry 06/23/19 06/23/19 09:36 09:38 Temperature 97.8 F Pulse Rate 65 65 Respiratory 18 Rate Blood Pressure 173/83 Blood Pressure 173/83 [Left] O2 Sat by Pulse Oximetry - General Apperance Constitutional: comfortable - EENT EENT: ATNC, PERRL, mucous membranes moist, hearing intact - Respiratory Respiratory: lungs clear, normal breath sounds - Cardiovascular Cardiovascular: regular rate, normal S1, normal S2 Extremities: no clubbing, cyanosis, no inflammation - Gastrointestinal Gastrointestinal: normoactive bowel sounds, soft, non-tender - Integumentary Integumentary: normal - Musculoskeletal Musculoskeletal: no fluid collection, no pain - Psychiatric Psychiatric: mood/affect appropriate - Laboratory Findings CBC and BMP: 06/17/19 06:58 06/21/19 14:31 Abnormal Lab Findings: Abnormal Labs 06/16/19 06/16/19 06/16/19 09:56 09:56 09:56 WBC 13.5 H RBC 5.91 H Hgb 17.5 H Hct 51.2 H [place] % (Auto) Seg Neutrophils % 76.3 H Seg Neutrophils # 10.3 H Sodium Chloride Carbon Dioxide BUN Creatinine Glucose POC Glucose Hemoglobin A1c Magnesium 1.60 L CK-MB (CK-2) Rel Index 5.4 H Troponin T 0.034 H Triglycerides 302 H Cholesterol 281 H LDL Cholesterol Direct 207 H Free T4 Salicylates 2.0 L Acetaminophen 06/16/19 06/16/19 06/16/19 09:56 09:56 14:59 WBC RBC Hgb Hct [place] % (Auto) Seg Neutrophils % Seg Neutrophils # Sodium 135 L Chloride 95.3 L Carbon Dioxide 20 L BUN Creatinine 0.5 L Glucose 342 H POC Glucose Hemoglobin A1c Magnesium CK-MB (CK-2) Rel Index Troponin T Triglycerides Cholesterol LDL Cholesterol Direct Free T4 1.68 H Salicylates Acetaminophen < 5.0 L 06/16/19 06/16/19 06/17/19 16:48 22:57 06:58 WBC RBC 5.84 H Hgb 17.2 H Hct 50.2 H [place] % (Auto) 7.4 H Seg Neutrophils % Seg Neutrophils # Sodium Chloride Carbon Dioxide BUN Creatinine Glucose POC Glucose 248 H 254 H Hemoglobin A1c Magnesium CK-MB (CK-2) Rel Index Troponin T Triglycerides Cholesterol LDL Cholesterol Direct Free T4 Salicylates Acetaminophen 06/17/19 06/17/19 06/17/19 08:18 11:41 12:06 WBC RBC Hgb Hct [place] % (Auto) Seg Neutrophils % Seg Neutrophils # Sodium 136 L Chloride 97.5 L Carbon Dioxide BUN Creatinine 0.5 L Glucose 318 H POC Glucose 266 H 262 H Hemoglobin A1c Magnesium CK-MB (CK-2) Rel Index Troponin T Triglycerides Cholesterol LDL Cholesterol Direct Free T4 Salicylates Acetaminophen 06/17/19 06/17/19 06/18/19 16:02 21:31 08:17 WBC RBC Hgb Hct [place] % (Auto) Seg Neutrophils % Seg Neutrophils # Sodium Chloride Carbon Dioxide BUN Creatinine Glucose POC Glucose 259 H 266 H 239 H Hemoglobin A1c Magnesium CK-MB (CK-2) Rel Index Troponin T Triglycerides Cholesterol LDL Cholesterol Direct Free T4 Salicylates Acetaminophen 06/18/19 06/18/19 06/18/19 12:54 14:28 16:40 WBC RBC Hgb Hct [place] % (Auto) Seg Neutrophils % Seg Neutrophils # Sodium Chloride Carbon Dioxide BUN Creatinine Glucose POC Glucose 287 H 232 H Hemoglobin A1c 11.2 H Magnesium CK-MB (CK-2) Rel Index Troponin T Triglycerides Cholesterol LDL Cholesterol Direct Free T4 Salicylates Acetaminophen 06/18/19 06/19/19 06/19/19 22:11 08:20 11:20 WBC RBC Hgb Hct [place] % (Auto) Seg Neutrophils % Seg Neutrophils # Sodium Chloride Carbon Dioxide BUN Creatinine Glucose POC Glucose 294 H 259 H 280 H Hemoglobin A1c Magnesium CK-MB (CK-2) Rel Index Troponin T Triglycerides Cholesterol LDL Cholesterol Direct Free T4 Salicylates Acetaminophen 06/19/19 06/19/19 06/20/19 17:35 23:43 07:55 WBC RBC Hgb Hct [place] % (Auto) Seg Neutrophils % Seg Neutrophils # Sodium Chloride Carbon Dioxide BUN Creatinine Glucose POC Glucose 233 H 188 H 249 H Hemoglobin A1c Magnesium CK-MB (CK-2) Rel Index Troponin T Triglycerides Cholesterol LDL Cholesterol Direct Free T4 Salicylates Acetaminophen 06/20/19 06/20/19 06/20/19 11:51 16:42 21:41 WBC RBC Hgb Hct [place] % (Auto) Seg Neutrophils % Seg Neutrophils # Sodium Chloride Carbon Dioxide BUN Creatinine Glucose POC Glucose 240 H 231 H 255 H Hemoglobin A1c Magnesium CK-MB (CK-2) Rel Index Troponin T Triglycerides Cholesterol LDL Cholesterol Direct Free T4 Salicylates Acetaminophen 06/21/19 06/21/19 06/21/19 08:05 11:30 14:31 WBC RBC Hgb Hct [place] % (Auto) Seg Neutrophils % Seg Neutrophils # Sodium Chloride Carbon Dioxide 21 L BUN 20 H Creatinine 0.6 L Glucose 270 H POC Glucose 262 H 280 H Hemoglobin A1c Magnesium CK-MB (CK-2) Rel Index Troponin T Triglycerides Cholesterol LDL Cholesterol Direct Free T4 Salicylates Acetaminophen 06/21/19 06/21/19 06/22/19 16:44 21:53 07:50 WBC RBC Hgb Hct [place] % (Auto) Seg Neutrophils % Seg Neutrophils # Sodium Chloride Carbon Dioxide BUN Creatinine Glucose POC Glucose 188 H 245 H 226 H Hemoglobin A1c Magnesium CK-MB (CK-2) Rel Index Troponin T Triglycerides Cholesterol LDL Cholesterol Direct Free T4 Salicylates Acetaminophen 06/22/19 06/22/19 06/22/19 11:17 16:56 22:11 WBC RBC Hgb Hct [place] % (Auto) Seg Neutrophils % Seg Neutrophils # Sodium Chloride Carbon Dioxide BUN Creatinine Glucose POC Glucose 282 H 264 H 194 H Hemoglobin A1c Magnesium CK-MB (CK-2) Rel Index Troponin T Triglycerides Cholesterol LDL Cholesterol Direct Free T4 Salicylates Acetaminophen 06/23/19 07:40 WBC RBC Hgb Hct [place] % (Auto) Seg Neutrophils % Seg Neutrophils # Sodium Chloride Carbon Dioxide BUN Creatinine Glucose POC Glucose 237 H Hemoglobin A1c Magnesium CK-MB (CK-2) Rel Index Troponin T Triglycerides Cholesterol LDL Cholesterol Direct Free T4 Salicylates Acetaminophen
[2019-06-23 14:01] VITALS: BP 133/78
== END 2019-06-23 14:15 | disposition home health service (06) | DRG 65 ==
LOC: ED 09:38 → 3A 11:35 → OBSVTOIN 06-19 12:28
PROVIDERS: ADMIT Internal Medicine; ATTEND Internal Medicine
DX: I63.9 Cerebral infarction, unspecified (principal); I69.351 Hemiplegia and hemiparesis following cerebral infarction affecting right dominant side; E83.42 Hypomagnesemia; I16.0 Hypertensive urgency; E11.65 Type 2 diabetes mellitus with hyperglycemia; I10 Essential (primary) hypertension; Z82.49 Family history of ischemic heart disease and other diseases of the circulatory system; R29.714 NIHSS score 14; W18.39XA Other fall on same level, initial encounter; Y93.89 Activity, other specified; Y92.098 Other place in other non-institutional residence as the place of occurrence of the external cause; Y99.8 Other external cause status
CPT/HCPCS: 36415; 70450; 70496; 70498; 71045; 72125; 80048; 80053; 80061; 80320; 82550; 82553; 82962; 83036; 83735; 84439; 84443; 84484; 85025; 85610; 85670; 85730; 90686; 90732; 93005; 93010; 93306; 93880; 96374; G0378; A9270-GY; G0480; G0515-GN; J0360; J1630; J1644; J1815; J2060; J2270; J3475; J7040; Q9967